=== PATIENT | male | born 1965 | race Caucasian/White ===

== ENCOUNTER 2017-06-29 12:51 | Emergency (ER) | payer MEDICAID ==
[~2017-06-29] VITALS: Ht 172.7 cm; Wt 79.0 kg
[~2017-06-29 12:51] MED LIST: AMOX-424 PO; ASPI-1158 PO; ECOTRIN; FLUC200T PO; INSU100C6 SQ; INSU100I7 SQ; LEVPEN SQ; LISI-186 PO; LOPE2CAP PO; MAGN400T26 PO; METO5TAB99 PO; MULT-348 PO; POTA10TA15 PO; TRAM50TA3 PO
[2017-06-29] MEDS ORDERED: ONDANSETRON HCL 4MG/2ML VIAL IV ONE ×2 (15:15→16:30)
[2017-06-29] MEDS ORDERED: KETOROLAC 30MG/ML VIAL IV ONE (16:45)
[2017-06-29] MEDS ORDERED: MAGNESIUM/ALUMINUM HYDROXIDE/SIMETHICONE 30ML UDC PO STA (17:08)
[2017-06-29] MEDS ORDERED: FAMOTIDINE 20MG/2ML VIAL IV STA (17:08)
[2017-06-29 17:43] LABS: BASOPHILS % 0.6 % (0.0-2.0); HEMATOCRIT. 37.1 % (42.0-52.0); HEMOGLOBIN. 12.2 g/dL (14.0-18.0); LYMPHOCYTES % 7.8 % (20.0-50.0); MEAN CORPUSCULAR HEMOGLOBIN 27.2 pg (28.0-32.0); MEAN CORPUSCULAR VOLUME 82.6 fL (80.0-94.0); MEAN PLATELET VOLUME 7.2 fl (7.4-10.4); MONOCYTES % 3.5 % (2.0-8.0); NEUTROPHILS % 88.1 % (40.0-76.0); PLATELET 365 x1000/uL (130-400); RED BLOOD CELL COUNT 4.49 mill/uL (4.7-6.1)
[2017-06-29 17:48] LABS: CHLORIDE 100 mEq/L (98-107)
[2017-06-29 17:57] LABS: CARBON DIOXIDE 28 mEq/L (21-32)
[2017-06-29] MEDS ORDERED: METOCLOPRAMIDE HCL 10MG/2ML VIAL IV ONE (21:30)
[2017-06-29] MEDS ORDERED: MORPHINE SULFATE 4 MG/ML CPJ (NOT FOR IM USE) IV STA (21:30)
[2017-06-29] MEDS ORDERED: MORPHINE SULFATE 4 MG/ML CPJ (NOT FOR IM USE) IV ONE (22:15)
[2017-06-29 23:21] VITALS: BP 82/76
== END 2017-06-29 23:25 | disposition home or self-care (01) ==
LOC: ER 12:51
DX: K80.20 Calculus of gallbladder without cholecystitis without obstruction (principal); E11.9 Type 2 diabetes mellitus without complications; Z79.4 Long term (current) use of insulin; Z79.82 Long term (current) use of aspirin
CPT/HCPCS: 36415; 76700; 80053; 82962; 83690; 85025; 96374; 96375; 96376; 99285; J1885; J2270; J2405; J2765; J3490; Z7610

== ENCOUNTER 2019-11-08 11:30 | Inpatient (IN) | payer MEDICAID ==
[~2019-11-08] VITALS: Ht 165.1 cm; Wt 68.3 kg
[~2019-11-08 11:30] MED LIST changes: -AMOX-424 PO; +CALC0.253 MT; +CALC667C MT; -ECOTRIN; +FERR325T6 PO; -FLUC200T PO; +HYDR-4134 MT; -INSU100C6 SQ; -LEVPEN SQ; -LISI-186 PO; -LOPE2CAP PO; -MAGN400T26 PO; -METO5TAB99 PO; -POTA10TA15 PO; +PRAV20TA57 MT; -TRAM50TA3 PO
[2019-11-08] MEDS ORDERED: HYDROCODONE/ACETAMINOPHEN 5/325MG TABLET PO ONE (12:15)
[2019-11-08 13:39] LABS: HEMATOCRIT. 24.1 % (42.0-52.0); HEMOGLOBIN. 7.4 g/dL (14.0-18.0); MEAN CORPUSCULAR HEMOGLOBIN 19.8 pg (28.0-32.0); MEAN CORPUSCULAR VOLUME 64.7 fL (80.0-94.0); MEAN PLATELET VOLUME 6.9 fl (7.4-10.4); PLATELET 761 x1000/uL (130-400); RED BLOOD CELL COUNT 3.72 mill/uL (4.7-6.1); RED CELL DISTRIBUTION WIDTH 22.2 % (11.6-14.6)
[2019-11-08 13:47] LABS: CHLORIDE 94 mEq/L (98-107)
[2019-11-08 13:57] LABS: D-DIMER 17.31 mg/L FEU (<0.50); INR 1.1
[2019-11-08] MEDS ORDERED: VANCOMYCIN 1 G PREMIX 200 ML IV ONE (14:00)
[2019-11-08] MEDS ORDERED: PIPERACILLIN/TAZ 3.375G PREMIX 50 ML IV ONE (14:00)
[2019-11-08 14:15] LABS: PLATELET ESTIMATE INCREASED
[2019-11-08] MEDS ORDERED: SODIUM CHLORIDE 0.9% 500 ML IV ONE (14:39)
[2019-11-08] MEDS ORDERED: CEFTRIAXONE 1 G PREMIX 50 ML IV SCH (18:00)
[2019-11-08] MEDS ORDERED: ACETAMINOPHEN 650MG SUPP PR PRN ×2 (18:15)
[2019-11-08] MEDS ORDERED: ACETAMINOPHEN 325MG TABLET PO PRN (18:15)
[2019-11-08] MEDS ORDERED: ACETAMINOPHEN 650MG/20.3ML UDC GT PRN ×2 (18:15)
[2019-11-08] MEDS ORDERED: ENOXAPARIN 40MG/0.4ML SYR SUBCUT SCH ×2 (18:15)
[2019-11-08] MEDS ORDERED: MAGNESIUM/ALUMINUM HYDROXIDE/SIMETHICONE 30ML UDC PO PRN (18:15)
[2019-11-08] MEDS: SODIUM CHLORIDE 0.9% INJ 3ML FLUSH IVF SCH (22:00)
[2019-11-09] MEDS: HYDROCODONE/ACETAMINOPHEN 5/325MG TABLET PO PRN ×2 (02:05→18:31)
[2019-11-09 04:11] LABS: HEMATOCRIT. 27.6 % (42.0-52.0); HEMOGLOBIN. 8.1 g/dL (14.0-18.0); MEAN CORPUSCULAR HEMOGLOBIN 19.3 pg (28.0-32.0); MEAN CORPUSCULAR VOLUME 65.5 fL (80.0-94.0); MEAN PLATELET VOLUME 6.8 fl (7.4-10.4); PLATELET 765 x1000/uL (130-400); RED BLOOD CELL COUNT 4.21 mill/uL (4.7-6.1); RED CELL DISTRIBUTION WIDTH 22.2 % (11.6-14.6)
[2019-11-09 04:25] LABS: CHLORIDE 94 mEq/L (98-107)
[2019-11-09 04:32] LABS: LDL CHOLESTEROL 51 mg/dL (5-100)
[2019-11-09 04:34] LABS: HDL CHOLESTEROL 17 mg/dL (40-59)
[2019-11-09] MEDS: SODIUM CHLORIDE 0.9% INJ 3ML FLUSH IVF SCH ×3 (06:00→20:58)
[2019-11-09 08:15] VITALS: BP 116/59
[2019-11-09 08:20] LABS: PLATELET ESTIMATE INCREASED
[2019-11-09 16:12] VITALS: BP 114/66
[2019-11-09] MEDS ORDERED: CEFTRIAXONE 1 G PREMIX 50 ML IV SCH (18:00)
[2019-11-09] MEDS: ENOXAPARIN 30MG/0.3ML SYR SUBCUT SCH (18:31)
[2019-11-09] MEDS ORDERED: DEXTROSE 50% WATER 50ML SYRINGE IV PRN (19:45)
[2019-11-09] MEDS ORDERED: NON FORMULARY PATIENT HOME MED XX SCH (19:45)
[2019-11-09 20:30] VITALS: BP 106/56
[2019-11-09] MEDS: BLOOD SUGAR DIAGNOSTIC STRIP TEST SCH (20:31)
[2019-11-09] MEDS: ATORVASTATIN CALCIUM 10MG TABLET PO SCH (20:53)
[2019-11-09] MEDS: MULTIVITAMINS,THER W-MINERALS TABLET PO SCH (20:54)
[2019-11-09] MEDS: CALCITRIOL 0.25MCG CAPSULE PO SCH (20:54)
[2019-11-09] MEDS: INSULIN LISPRO 100 UNITS/ML SUBCUT SCH (20:58)
[2019-11-09] MEDS: DIPHENHYDRAMINE 50MG/ML VIAL IV PRN (22:09)
[2019-11-10] VITALS: BP 116/65
[2019-11-10 04:30] VITALS: BP 115/66
[2019-11-10] MEDS: SODIUM CHLORIDE 0.9% INJ 3ML FLUSH IVF SCH ×3 (05:18→23:04)
[2019-11-10] MEDS: BLOOD SUGAR DIAGNOSTIC STRIP TEST SCH ×4 (06:29→20:29)
[2019-11-10] MEDS: HYDROCODONE/ACETAMINOPHEN 5/325MG TABLET PO PRN ×2 (06:44→20:29)
[2019-11-10 07:11] LABS: HEMATOCRIT. 23.3 % (42.0-52.0); HEMOGLOBIN. 7.2 g/dL (14.0-18.0); MEAN CORPUSCULAR HEMOGLOBIN 19.8 pg (28.0-32.0); MEAN CORPUSCULAR VOLUME 64.4 fL (80.0-94.0); MEAN PLATELET VOLUME 6.8 fl (7.4-10.4); PLATELET 754 x1000/uL (130-400); RED BLOOD CELL COUNT 3.61 mill/uL (4.7-6.1); RED CELL DISTRIBUTION WIDTH 22.1 % (11.6-14.6)
[2019-11-10 08:00] VITALS: BP 107/61
[2019-11-10] MEDS: CALCITRIOL 0.25MCG CAPSULE PO SCH (08:11)
[2019-11-10] MEDS: CALCIUM ACETATE 667MG CAPSULE PO SCH ×3 (08:11→17:27)
[2019-11-10] MEDS: FERROUS SULFATE 325MG TABLET PO SCH ×3 (08:12→17:27)
[2019-11-10] MEDS: MULTIVITAMINS,THER W-MINERALS TABLET PO SCH (08:12)
[2019-11-10] MEDS: ASPIRIN 81MG TABLET PO SCH (08:12)
[2019-11-10] MEDS: INSULIN LISPRO 100 UNITS/ML SUBCUT SCH ×4 (08:13→20:41)
[2019-11-10 11:46] LABS: PLATELET ESTIMATE INCREASED
[2019-11-10 12:00] VITALS: BP 107/55
[2019-11-10] MEDS ORDERED: METRONIDAZOLE 500 MG PREMIX 100 ML IV SCH (13:15)
[2019-11-10] MEDS: METRONIDAZOLE 500 MG PREMIX 100 ML IV SCH ×2 (14:00→23:01)
[2019-11-10] MEDS ORDERED: VANCOMYCIN 1 G PREMIX 200 ML IV SCH (14:00)
[2019-11-10 16:00] VITALS: BP 125/65
[2019-11-10] MEDS: ACETAMINOPHEN 325MG TABLET PO PRN (17:29)
[2019-11-10] MEDS: ENOXAPARIN 30MG/0.3ML SYR SUBCUT SCH (17:29)
[2019-11-10] MEDS: CEFTRIAXONE 1 G PREMIX 50 ML IV SCH (18:32)
[2019-11-10 20:00] VITALS: BP 108/59
[2019-11-10] MEDS: ATORVASTATIN CALCIUM 10MG TABLET PO SCH (20:29)
[2019-11-11] VITALS: BP 95/60
[2019-11-11] MEDS: DIPHENHYDRAMINE 50MG/ML VIAL IV PRN (00:38)
[2019-11-11 04:00] VITALS: BP 122/69
[2019-11-11] MEDS: SODIUM CHLORIDE 0.9% INJ 3ML FLUSH IVF SCH ×3 (05:47→22:00)
[2019-11-11 06:00] LABS: BASOPHILS % 0.3 % (0.0-2.0); HEMATOCRIT. 24.9 % (42.0-52.0); HEMOGLOBIN. 7.4 g/dL (14.0-18.0); LYMPHOCYTES % 11.2 % (20.0-50.0); MEAN CORPUSCULAR HEMOGLOBIN 19.7 pg (28.0-32.0); MEAN CORPUSCULAR VOLUME 65.9 fL (80.0-94.0); MEAN PLATELET VOLUME 6.8 fl (7.4-10.4); MONOCYTES % 2.9 % (2.0-8.0); NEUTROPHILS % 84.6 % (40.0-76.0); PLATELET 802 x1000/uL (130-400); RED BLOOD CELL COUNT 3.77 mill/uL (4.7-6.1); RED CELL DISTRIBUTION WIDTH 22.3 % (11.6-14.6)
[2019-11-11 06:29] LABS: PHOSPHORUS 3.8 mg/dL (2.5-4.9)
[2019-11-11] MEDS: BLOOD SUGAR DIAGNOSTIC STRIP TEST SCH ×4 (06:46→20:28)
[2019-11-11 08:00] VITALS: BP 110/62
[2019-11-11] MEDS: METRONIDAZOLE 500 MG PREMIX 100 ML IV SCH ×2 (09:26→20:17)
[2019-11-11] MEDS: CALCITRIOL 0.25MCG CAPSULE PO SCH (09:26)
[2019-11-11] MEDS: CALCIUM ACETATE 667MG CAPSULE PO SCH ×3 (09:26→17:32)
[2019-11-11] MEDS: ASPIRIN 81MG TABLET PO SCH (09:27)
[2019-11-11] MEDS: MULTIVITAMINS,THER W-MINERALS TABLET PO SCH (09:27)
[2019-11-11] MEDS: FERROUS SULFATE 325MG TABLET PO SCH ×3 (09:27→17:33)
[2019-11-11] MEDS: INSULIN LISPRO 100 UNITS/ML SUBCUT SCH ×4 (09:28→20:48)
[2019-11-11] MEDS: HYDROCODONE/ACETAMINOPHEN 5/325MG TABLET PO PRN ×2 (10:28→20:42)
[2019-11-11 12:00] VITALS: BP 116/63
[2019-11-11 16:00] VITALS: BP 134/65
[2019-11-11] MEDS: ENOXAPARIN 30MG/0.3ML SYR SUBCUT SCH (17:33)
[2019-11-11] MEDS: CEFTRIAXONE 1 G PREMIX 50 ML IV SCH (17:33)
[2019-11-11 20:00] VITALS: BP 141/71
[2019-11-11] MEDS: ATORVASTATIN CALCIUM 10MG TABLET PO SCH (20:17)
[2019-11-12] VITALS (14 sets, daily range): BP systolic 120–163; BP diastolic 60–80
[2019-11-12] MEDS: CEFAZOLIN 2,000 MG in DEXT 5% WATER 100 ML IV SCH ×2 (04:06→22:56)
[2019-11-12] MEDS: SODIUM CHLORIDE 0.9% INJ 3ML FLUSH IVF SCH (06:19)
[2019-11-12] MEDS: BLOOD SUGAR DIAGNOSTIC STRIP TEST SCH ×5 (06:20→21:00)
[2019-11-12 07:29] LABS: BASOPHILS % 0.4 % (0.0-2.0); HEMATOCRIT. 24.4 % (42.0-52.0); HEMOGLOBIN. 7.4 g/dL (14.0-18.0); LYMPHOCYTES % 12.6 % (20.0-50.0); MEAN CORPUSCULAR HEMOGLOBIN 19.8 pg (28.0-32.0); MEAN CORPUSCULAR VOLUME 64.8 fL (80.0-94.0); MEAN PLATELET VOLUME 6.8 fl (7.4-10.4); MONOCYTES % 2.8 % (2.0-8.0); NEUTROPHILS % 83.2 % (40.0-76.0); PLATELET 810 x1000/uL (130-400); RED BLOOD CELL COUNT 3.77 mill/uL (4.7-6.1); RED CELL DISTRIBUTION WIDTH 22.1 % (11.6-14.6)
[2019-11-12 07:47] LABS: PHOSPHORUS 3.7 mg/dL (2.5-4.9)
[2019-11-12] MEDS: FERROUS SULFATE 325MG TABLET PO SCH ×3 (08:33→17:40)
[2019-11-12] MEDS: MULTIVITAMINS,THER W-MINERALS TABLET PO SCH (08:33)
[2019-11-12] MEDS: CALCIUM ACETATE 667MG CAPSULE PO SCH ×3 (08:33→17:40)
[2019-11-12] MEDS: INSULIN LISPRO 100 UNITS/ML SUBCUT SCH ×4 (08:49→22:55)
[2019-11-12] MEDS: ASPIRIN 81MG TABLET PO SCH (08:51)
[2019-11-12] MEDS: CALCITRIOL 0.25MCG CAPSULE PO SCH (08:51)
[2019-11-12] MEDS: METRONIDAZOLE 500 MG PREMIX 100 ML IV SCH ×2 (08:52→22:56)
[2019-11-12] MEDS: HYDROCODONE/ACETAMINOPHEN 5/325MG TABLET PO PRN ×3 (09:04→23:35)
[2019-11-12] MEDS ORDERED: HEPARIN SODIUM 1,000 UNIT/1ML VIAL IV SCH (14:15)
[2019-11-12] MEDS: ENOXAPARIN 30MG/0.3ML SYR SUBCUT SCH (17:43)
[2019-11-12] MEDS: ATORVASTATIN CALCIUM 10MG TABLET PO SCH (22:55)
[2019-11-13] VITALS: BP 119/68
[2019-11-13] MEDS: DIPHENHYDRAMINE 50MG/ML VIAL IV PRN (02:14)
[2019-11-13 04:00] VITALS: BP 152/82
[2019-11-13] MEDS ORDERED: VANCOMYCIN HCL 1 GM/VIAL ONE ×2 (06:36→08:05)
[2019-11-13] MEDS ORDERED: BUPIVACAINE HCL/EPINEPHRINE/PF 0.5%/0.0005 10ML ONE (06:36)
[2019-11-13] MEDS ORDERED: BACITRACIN 50,000 UNITS/VIAL ONE ×2 (06:36→06:37)
[2019-11-13] MEDS ORDERED: BUPIVACAINE HCL/PF 0.5% (5MG/ML) 10ML ONE (06:36)
[2019-11-13 06:51] LABS: BASOPHILS % 0.5 % (0.0-2.0); EOSINOPHILS % 1.2 % (0.0-5.0); HEMATOCRIT. 29.1 % (42.0-52.0); HEMOGLOBIN. 9.3 g/dL (14.0-18.0); LYMPHOCYTES % 8.9 % (20.0-50.0); MEAN CORPUSCULAR HEMOGLOBIN 22.4 pg (28.0-32.0); MEAN CORPUSCULAR VOLUME 70.2 fL (80.0-94.0); MEAN PLATELET VOLUME 6.8 fl (7.4-10.4); MONOCYTES % 3.9 % (2.0-8.0); NEUTROPHILS % 85.5 % (40.0-76.0); PLATELET 758 x1000/uL (130-400); RED BLOOD CELL COUNT 4.15 mill/uL (4.7-6.1); RED CELL DISTRIBUTION WIDTH 26.1 % (11.6-14.6)
[2019-11-13 07:13] LABS: PHOSPHORUS 3.8 mg/dL (2.5-4.9)
[2019-11-13] MEDS ORDERED: MIDAZOLAM HCL 5 MG/5 ML VIAL ONE (07:34)
[2019-11-13] MEDS ORDERED: PROPOFOL 200MG/20ML VIAL IV ONE (07:35)
[2019-11-13] MEDS ORDERED: SUCCINYLCHOLINE CHLORIDE 200MG/10ML IV ONE (07:35)
[2019-11-13] MEDS: INSULIN LISPRO 100 UNITS/ML SUBCUT SCH ×4 (07:50→21:39)
[2019-11-13] MEDS: CALCIUM ACETATE 667MG CAPSULE PO SCH ×3 (07:50→18:40)
[2019-11-13] MEDS: BLOOD SUGAR DIAGNOSTIC STRIP TEST SCH ×4 (08:11→21:24)
[2019-11-13] MEDS ORDERED: SODIUM CHLORIDE 0.9% 1,000 ML IV ONE (08:24)
[2019-11-13] MEDS ORDERED: ONDANSETRON HCL 4MG/2ML INJ IV PRN (08:30)
[2019-11-13] MEDS ORDERED: MORPHINE SULFATE 2 MG/ML CPJ (NOT FOR IM USE) IV PRN (08:30)
[2019-11-13] MEDS ORDERED: HYDROMORPHONE HCL/PF 2MG/ML CPJ IV PRN (08:30)
[2019-11-13] MEDS: ASPIRIN 81MG TABLET PO SCH (09:00)
[2019-11-13 10:00] VITALS: BP 142/72
[2019-11-13] MEDS: METRONIDAZOLE 500 MG PREMIX 100 ML IV SCH ×2 (11:15→23:01)
[2019-11-13] MEDS: MULTIVITAMINS,THER W-MINERALS TABLET PO SCH (11:16)
[2019-11-13] MEDS: CLONIDINE 0.1MG TABLET PO PRN (11:16)
[2019-11-13] MEDS: FERROUS SULFATE 325MG TABLET PO SCH ×3 (11:16→18:40)
[2019-11-13] MEDS: CALCITRIOL 0.25MCG CAPSULE PO SCH (11:16)
[2019-11-13 12:00] VITALS: BP 148/80
[2019-11-13] MEDS: HYDROMORPHONE HCL/PF 2MG/ML CPJ IM PRN ×2 (12:13→21:19)
[2019-11-13 16:00] VITALS: BP 138/78
[2019-11-13] MEDS: HYDROCODONE/ACETAMINOPHEN 5/325MG TABLET PO PRN (17:59)
[2019-11-13] MEDS: ENOXAPARIN 30MG/0.3ML SYR SUBCUT SCH (18:01)
[2019-11-13 20:00] VITALS: BP 135/77
[2019-11-13] MEDS: SODIUM CHLORIDE 0.9% INJ 3ML FLUSH IVF SCH ×2 (21:23→21:28)
[2019-11-13] MEDS: ATORVASTATIN CALCIUM 10MG TABLET PO SCH (21:24)
[2019-11-13] MEDS: CEFAZOLIN 2,000 MG in DEXT 5% WATER 100 ML IV SCH (21:24)
[2019-11-14] VITALS: BP 110/96
[2019-11-14] MEDS: DIPHENHYDRAMINE 50MG/ML VIAL IV PRN (01:37)
[2019-11-14 04:00] VITALS: BP 151/73
[2019-11-14 05:48] LABS: BASOPHILS % 0.5 % (0.0-2.0); EOSINOPHILS % 1.8 % (0.0-5.0); HEMATOCRIT. 26.9 % (42.0-52.0); HEMOGLOBIN. 8.5 g/dL (14.0-18.0); LYMPHOCYTES % 8.7 % (20.0-50.0); MEAN CORPUSCULAR HEMOGLOBIN 22.1 pg (28.0-32.0); MEAN CORPUSCULAR VOLUME 69.4 fL (80.0-94.0); MEAN PLATELET VOLUME 6.7 fl (7.4-10.4); PLATELET 777 x1000/uL (130-400); RED BLOOD CELL COUNT 3.87 mill/uL (4.7-6.1); RED CELL DISTRIBUTION WIDTH 26.5 % (11.6-14.6)
[2019-11-14 06:14] LABS: PHOSPHORUS 4.2 mg/dL (2.5-4.9)
[2019-11-14] MEDS: HYDROMORPHONE HCL/PF 2MG/ML CPJ IM PRN ×2 (06:14→15:26)
[2019-11-14] MEDS: BLOOD SUGAR DIAGNOSTIC STRIP TEST SCH ×4 (06:56→21:10)
[2019-11-14] MEDS: SODIUM CHLORIDE 0.9% INJ 3ML FLUSH IVF SCH ×3 (06:56→21:10)
[2019-11-14 07:55] VITALS: BP 132/67
[2019-11-14] MEDS: ASPIRIN 81MG TABLET PO SCH (10:03)
[2019-11-14] MEDS: CALCITRIOL 0.25MCG CAPSULE PO SCH (10:03)
[2019-11-14] MEDS: MULTIVITAMINS,THER W-MINERALS TABLET PO SCH (10:03)
[2019-11-14] MEDS: CALCIUM ACETATE 667MG CAPSULE PO SCH ×3 (10:03→17:32)
[2019-11-14] MEDS: FERROUS SULFATE 325MG TABLET PO SCH ×3 (10:03→17:33)
[2019-11-14] MEDS: INSULIN LISPRO 100 UNITS/ML SUBCUT SCH ×4 (10:14→22:17)
[2019-11-14] MEDS: METRONIDAZOLE 500 MG PREMIX 100 ML IV SCH ×2 (10:14→20:17)
[2019-11-14 12:00] VITALS: BP 136/79
[2019-11-14] MEDS ORDERED: HEPARIN SODIUM 1,000 UNIT/1ML VIAL IV SCH (13:15)
[2019-11-14 16:00] VITALS: BP 156/76
[2019-11-14] MEDS: ENOXAPARIN 30MG/0.3ML SYR SUBCUT SCH (17:43)
[2019-11-14] MEDS: HYDROCODONE/ACETAMINOPHEN 5/325MG TABLET PO PRN (18:19)
[2019-11-14 20:00] VITALS: BP 148/72
[2019-11-14] MEDS: CEFAZOLIN 2,000 MG in DEXT 5% WATER 100 ML IV SCH (20:18)
[2019-11-14] MEDS: ATORVASTATIN CALCIUM 10MG TABLET PO SCH (20:18)
[2019-11-15] VITALS: BP 142/68
[2019-11-15] MEDS: HYDROCODONE/ACETAMINOPHEN 5/325MG TABLET PO PRN ×4 (00:45→22:11)
[2019-11-15] MEDS: DIPHENHYDRAMINE 50MG/ML VIAL IV PRN (01:38)
[2019-11-15 04:00] VITALS: BP 133/71
[2019-11-15] MEDS: BLOOD SUGAR DIAGNOSTIC STRIP TEST SCH ×4 (04:24→20:25)
[2019-11-15] MEDS: SODIUM CHLORIDE 0.9% INJ 3ML FLUSH IVF SCH ×3 (04:24→22:12)
[2019-11-15 06:22] LABS: BASOPHILS % 0.6 % (0.0-2.0); HEMATOCRIT. 27.9 % (42.0-52.0); HEMOGLOBIN. 8.7 g/dL (14.0-18.0); LYMPHOCYTES % 12.8 % (20.0-50.0); MEAN CORPUSCULAR HEMOGLOBIN 21.9 pg (28.0-32.0); MEAN CORPUSCULAR VOLUME 70.5 fL (80.0-94.0); MEAN PLATELET VOLUME 6.6 fl (7.4-10.4); MONOCYTES % 5.4 % (2.0-8.0); NEUTROPHILS % 79.2 % (40.0-76.0); PLATELET 750 x1000/uL (130-400); RED BLOOD CELL COUNT 3.96 mill/uL (4.7-6.1); RED CELL DISTRIBUTION WIDTH 27.3 % (11.6-14.6)
[2019-11-15 06:38] LABS: PHOSPHORUS 3.4 mg/dL (2.5-4.9)
[2019-11-15 08:00] VITALS: BP 124/59
[2019-11-15] MEDS: ASPIRIN 81MG TABLET PO SCH (08:13)
[2019-11-15] MEDS: MULTIVITAMINS,THER W-MINERALS TABLET PO SCH (08:13)
[2019-11-15] MEDS: CALCIUM ACETATE 667MG CAPSULE PO SCH ×3 (08:13→17:47)
[2019-11-15] MEDS: CALCITRIOL 0.25MCG CAPSULE PO SCH (08:13)
[2019-11-15] MEDS: FERROUS SULFATE 325MG TABLET PO SCH ×3 (08:13→17:47)
[2019-11-15] MEDS: INSULIN LISPRO 100 UNITS/ML SUBCUT SCH ×4 (08:14→20:25)
[2019-11-15] MEDS: METRONIDAZOLE 500 MG PREMIX 100 ML IV SCH ×2 (08:30→20:12)
[2019-11-15 12:00] VITALS: BP 156/80
[2019-11-15] MEDS: HYDROMORPHONE HCL/PF 2MG/ML CPJ IM PRN (12:12)
[2019-11-15 16:00] VITALS: BP 133/76
[2019-11-15] MEDS: ENOXAPARIN 30MG/0.3ML SYR SUBCUT SCH (18:10)
[2019-11-15 20:00] VITALS: BP 137/63
[2019-11-15] MEDS: ATORVASTATIN CALCIUM 10MG TABLET PO SCH (20:11)
[2019-11-15] MEDS: CEFAZOLIN 2,000 MG in DEXT 5% WATER 100 ML IV SCH (20:12)
[2019-11-16] VITALS: BP 143/83
[2019-11-16] MEDS: DIPHENHYDRAMINE 50MG/ML VIAL IV PRN ×2 (00:10→23:19)
[2019-11-16 04:00] VITALS: BP 160/79
[2019-11-16] MEDS: SODIUM CHLORIDE 0.9% INJ 3ML FLUSH IVF SCH ×3 (05:13→21:19)
[2019-11-16] MEDS: HYDROCODONE/ACETAMINOPHEN 5/325MG TABLET PO PRN (05:15)
[2019-11-16] MEDS: BLOOD SUGAR DIAGNOSTIC STRIP TEST SCH ×4 (06:50→21:19)
[2019-11-16 08:00] VITALS: BP 160/79
[2019-11-16] MEDS: INSULIN LISPRO 100 UNITS/ML SUBCUT SCH ×4 (08:15→23:20)
[2019-11-16] MEDS: CALCITRIOL 0.25MCG CAPSULE PO SCH (08:16)
[2019-11-16] MEDS: FERROUS SULFATE 325MG TABLET PO SCH ×3 (08:16→16:47)
[2019-11-16] MEDS: CALCIUM ACETATE 667MG CAPSULE PO SCH ×3 (08:16→16:47)
[2019-11-16] MEDS: MULTIVITAMINS,THER W-MINERALS TABLET PO SCH (08:16)
[2019-11-16] MEDS: ASPIRIN 81MG TABLET PO SCH (08:17)
[2019-11-16] MEDS: HYDROMORPHONE HCL/PF 2MG/ML CPJ IM PRN (09:06)
[2019-11-16 12:00] VITALS: BP 145/75
[2019-11-16 16:00] VITALS: BP 151/85
[2019-11-16] MEDS: ENOXAPARIN 30MG/0.3ML SYR SUBCUT SCH (17:23)
[2019-11-16 20:00] VITALS: BP 146/81
[2019-11-16] MEDS: ATORVASTATIN CALCIUM 10MG TABLET PO SCH (21:19)
[2019-11-16] MEDS: CEFAZOLIN 2,000 MG in DEXT 5% WATER 100 ML IV SCH (21:19)
[2019-11-17] VITALS: BP 152/76
[2019-11-17] MEDS: SODIUM CHLORIDE 0.9% INJ 3ML FLUSH IVF SCH ×3 (03:32→21:04)
[2019-11-17] MEDS: HYDROCODONE/ACETAMINOPHEN 5/325MG TABLET PO PRN ×2 (03:32→11:51)
[2019-11-17] MEDS: HYDROMORPHONE HCL/PF 2MG/ML CPJ IM PRN (03:48)
[2019-11-17 04:00] VITALS: BP 117/78
[2019-11-17 06:32] LABS: BASOPHILS % 1.2 % (0.0-2.0); EOSINOPHILS % 4.1 % (0.0-5.0); HEMATOCRIT. 26.3 % (42.0-52.0); HEMOGLOBIN. 8.2 g/dL (14.0-18.0); LYMPHOCYTES % 11.8 % (20.0-50.0); MEAN CORPUSCULAR HEMOGLOBIN 21.6 pg (28.0-32.0); MEAN CORPUSCULAR VOLUME 69.3 fL (80.0-94.0); MEAN PLATELET VOLUME 6.6 fl (7.4-10.4); MONOCYTES % 5.2 % (2.0-8.0); NEUTROPHILS % 77.7 % (40.0-76.0); PLATELET 764 x1000/uL (130-400)
[2019-11-17] MEDS: BLOOD SUGAR DIAGNOSTIC STRIP TEST SCH ×4 (06:37→20:48)
[2019-11-17 07:30] LABS: CHLORIDE 101 mEq/L (98-107)
[2019-11-17 08:07] VITALS: BP 138/72
[2019-11-17] MEDS: CALCIUM ACETATE 667MG CAPSULE PO SCH ×3 (09:21→17:54)
[2019-11-17] MEDS: ASPIRIN 81MG TABLET PO SCH (09:22)
[2019-11-17] MEDS: FERROUS SULFATE 325MG TABLET PO SCH ×3 (09:22→17:54)
[2019-11-17] MEDS: MULTIVITAMINS,THER W-MINERALS TABLET PO SCH (09:22)
[2019-11-17] MEDS: CALCITRIOL 0.25MCG CAPSULE PO SCH (09:22)
[2019-11-17] MEDS: INSULIN LISPRO 100 UNITS/ML SUBCUT SCH ×4 (09:27→20:49)
[2019-11-17 11:33] VITALS: BP 142/74
[2019-11-17 16:21] VITALS: BP 170/82
[2019-11-17] MEDS: CLONIDINE 0.1MG TABLET PO PRN (16:49)
[2019-11-17] MEDS: ACETAMINOPHEN 325MG TABLET PO PRN (16:50)
[2019-11-17] MEDS ORDERED: [UNRECOGNIZED DRUG - CODE] IV (17:04)
[2019-11-17] MEDS ORDERED: CEFAZOLIN 1000MG PREMIX 50 ML IV SCH (17:30)
[2019-11-17] MEDS: ENOXAPARIN 30MG/0.3ML SYR SUBCUT SCH (17:55)
[2019-11-17] MEDS: CEFAZOLIN 2,000 MG in DEXT 5% WATER 100 ML IV SCH (17:55)
[2019-11-17] MEDS ORDERED: CEFAZOLIN 2000MG in DEXTROSE 5% WATER 100ML IV SCH (20:00)
[2019-11-17] MEDS ORDERED: HEPARIN SODIUM 1,000 UNIT/1ML VIAL IV ONE (20:15)
[2019-11-17 20:22] VITALS: BP 138/72
[2019-11-17] MEDS: ATORVASTATIN CALCIUM 10MG TABLET PO SCH (21:03)
[2019-11-18 00:49] VITALS: BP 127/58
[2019-11-18] MEDS: HYDROMORPHONE HCL/PF 2MG/ML CPJ IM PRN (01:01)
[2019-11-18] MEDS: DIPHENHYDRAMINE 50MG/ML VIAL IV PRN ×2 (02:02→21:50)
[2019-11-18 04:00] VITALS: BP 135/77
[2019-11-18 06:07] LABS: BASOPHILS % 0.7 % (0.0-2.0); EOSINOPHILS % 2.6 % (0.0-5.0); HEMOGLOBIN. 8.7 g/dL (14.0-18.0); LYMPHOCYTES % 14.1 % (20.0-50.0); MEAN CORPUSCULAR HEMOGLOBIN 21.8 pg (28.0-32.0); MEAN CORPUSCULAR VOLUME 69.9 fL (80.0-94.0); MEAN PLATELET VOLUME 6.5 fl (7.4-10.4); MONOCYTES % 4.5 % (2.0-8.0); NEUTROPHILS % 78.1 % (40.0-76.0); PLATELET 796 x1000/uL (130-400); RED CELL DISTRIBUTION WIDTH 27.1 % (11.6-14.6)
[2019-11-18] MEDS: SODIUM CHLORIDE 0.9% INJ 3ML FLUSH IVF SCH ×3 (06:31→21:55)
[2019-11-18] MEDS: BLOOD SUGAR DIAGNOSTIC STRIP TEST SCH ×4 (06:31→21:00)
[2019-11-18 07:10] LABS: PHOSPHORUS 3.3 mg/dL (2.5-4.9)
[2019-11-18] MEDS: HYDROCODONE/ACETAMINOPHEN 5/325MG TABLET PO PRN ×2 (07:17→17:54)
[2019-11-18] MEDS: FERROUS SULFATE 325MG TABLET PO SCH ×3 (07:50→20:02)
[2019-11-18] MEDS: INSULIN LISPRO 100 UNITS/ML SUBCUT SCH ×4 (07:50→21:55)
[2019-11-18] MEDS: CALCIUM ACETATE 667MG CAPSULE PO SCH ×3 (07:50→17:36)
[2019-11-18 08:00] VITALS: BP 148/68
[2019-11-18] MEDS: MULTIVITAMINS,THER W-MINERALS TABLET PO SCH (09:00)
[2019-11-18] MEDS: ASPIRIN 81MG TABLET PO SCH (09:00)
[2019-11-18] MEDS: CALCITRIOL 0.25MCG CAPSULE PO SCH (09:00)
[2019-11-18 12:00] VITALS: BP 150/71
[2019-11-18] MEDS ORDERED: NORMAL SALINE 0.9% 10 ML SYR ONE ×2 (12:43→13:29)
[2019-11-18] MEDS ORDERED: BUPIVACAINE HCL/PF 0.5% (5MG/ML) 10ML ONE (12:43)
[2019-11-18] MEDS ORDERED: LIDOCAINE HCL 1% 20ML VIAL (Pyxis) INJ ONE (12:43)
[2019-11-18] MEDS ORDERED: BACITRACIN 50,000 UNITS/VIAL ONE (12:44)
[2019-11-18] MEDS ORDERED: PROPOFOL 200MG/20ML VIAL IV ONE (13:29)
[2019-11-18] MEDS ORDERED: MIDAZOLAM HCL 2 MG/2 ML VIAL ONE (13:29)
[2019-11-18] MEDS ORDERED: FENTANYL CITRATE/PF 50MCG/ML 2ML VIAL ONE (13:29)
[2019-11-18] MEDS ORDERED: VANCOMYCIN HCL 1 GM/VIAL ONE (13:29)
[2019-11-18] MEDS ORDERED: VANCOMYCIN HCL 500 MG/VIAL ONE (13:37)
[2019-11-18] MEDS: ENOXAPARIN 30MG/0.3ML SYR SUBCUT SCH (17:54)
[2019-11-18 20:00] VITALS: BP 124/73
[2019-11-18] MEDS: ATORVASTATIN CALCIUM 10MG TABLET PO SCH (21:30)
[2019-11-18] MEDS: CEFAZOLIN 2,000 MG in DEXT 5% WATER 100 ML IV SCH (21:30)
[2019-11-18] MEDS: HYDROMORPHONE HCL/PF 2MG/ML CPJ IV PRN (21:31)
[2019-11-19] VITALS: BP 125/78
[2019-11-19 04:00] VITALS: BP 133/73
[2019-11-19] MEDS: HYDROMORPHONE HCL/PF 2MG/ML CPJ IV PRN ×4 (04:26→17:51)
[2019-11-19] MEDS: DIPHENHYDRAMINE 50MG/ML VIAL IV PRN ×3 (05:29→19:00)
[2019-11-19] MEDS: SODIUM CHLORIDE 0.9% INJ 3ML FLUSH IVF SCH ×3 (05:29→22:10)
[2019-11-19] MEDS: BLOOD SUGAR DIAGNOSTIC STRIP TEST SCH ×4 (06:34→21:46)
[2019-11-19 07:08] LABS: MEAN CORPUSCULAR HEMOGLOBIN 21.6 pg (28.0-32.0); MEAN CORPUSCULAR VOLUME 70.6 fL (80.0-94.0); MEAN PLATELET VOLUME 6.7 fl (7.4-10.4); PLATELET 757 x1000/uL (130-400); RED BLOOD CELL COUNT 3.69 mill/uL (4.7-6.1); RED CELL DISTRIBUTION WIDTH 27.1 % (11.6-14.6)
[2019-11-19] MEDS: CALCIUM ACETATE 667MG CAPSULE PO SCH ×3 (07:50→17:52)
[2019-11-19] MEDS: FERROUS SULFATE 325MG TABLET PO SCH ×3 (07:50→17:52)
[2019-11-19 07:55] LABS: PHOSPHORUS 3.2 mg/dL (2.5-4.9)
[2019-11-19 08:00] VITALS: BP 145/70
[2019-11-19] MEDS: INSULIN LISPRO 100 UNITS/ML SUBCUT SCH ×4 (08:16→22:08)
[2019-11-19] MEDS: ASPIRIN 81MG TABLET PO SCH (09:15)
[2019-11-19] MEDS: CALCITRIOL 0.25MCG CAPSULE PO SCH (09:16)
[2019-11-19] MEDS: MULTIVITAMINS,THER W-MINERALS TABLET PO SCH (09:16)
[2019-11-19 13:47] LABS: ATYPICAL LYMPHOCYTES 1; PLATELET ESTIMATE MARKEDLY DECREASED
[2019-11-19 16:34] VITALS: BP 162/59
[2019-11-19] MEDS: ENOXAPARIN 30MG/0.3ML SYR SUBCUT SCH (18:08)
[2019-11-19 20:00] VITALS: BP 136/69
[2019-11-19] MEDS: CEFAZOLIN 2,000 MG in DEXT 5% WATER 100 ML IV SCH (20:46)
[2019-11-19] MEDS: ATORVASTATIN CALCIUM 10MG TABLET PO SCH (20:55)
[2019-11-20] VITALS (7 sets, daily range): BP systolic 110–149; BP diastolic 62–75
[2019-11-20] MEDS: ACETAMINOPHEN 325MG TABLET PO PRN (00:31)
[2019-11-20] MEDS: HYDROMORPHONE HCL/PF 2MG/ML CPJ IV PRN ×3 (00:34→17:19)
[2019-11-20] MEDS: DIPHENHYDRAMINE 50MG/ML VIAL IV PRN ×2 (00:47→11:12)
[2019-11-20] MEDS: BLOOD SUGAR DIAGNOSTIC STRIP TEST SCH ×3 (06:00→17:20)
[2019-11-20] MEDS: SODIUM CHLORIDE 0.9% INJ 3ML FLUSH IVF SCH ×2 (06:16→13:09)
[2019-11-20 07:04] LABS: HEMOGLOBIN. 7.8 g/dL (14.0-18.0); MEAN CORPUSCULAR HEMOGLOBIN 22.7 pg (28.0-32.0); MEAN CORPUSCULAR VOLUME 70.1 fL (80.0-94.0); MEAN PLATELET VOLUME 6.5 fl (7.4-10.4); PLATELET 750 x1000/uL (130-400); RED BLOOD CELL COUNT 3.43 mill/uL (4.7-6.1); RED CELL DISTRIBUTION WIDTH 27.2 % (11.6-14.6)
[2019-11-20] MEDS: CALCIUM ACETATE 667MG CAPSULE PO SCH ×3 (08:40→17:50)
[2019-11-20] MEDS: FERROUS SULFATE 325MG TABLET PO SCH ×3 (08:40→17:50)
[2019-11-20] MEDS: INSULIN LISPRO 100 UNITS/ML SUBCUT SCH ×3 (08:41→17:50)
[2019-11-20] MEDS: MULTIVITAMINS,THER W-MINERALS TABLET PO SCH (08:44)
[2019-11-20] MEDS: CALCITRIOL 0.25MCG CAPSULE PO SCH (08:44)
[2019-11-20] MEDS: ASPIRIN 81MG TABLET PO SCH (08:44)
[2019-11-20 12:59] LABS: PLATELET ESTIMATE INCREASED
[2019-11-20] MEDS: ENOXAPARIN 30MG/0.3ML SYR SUBCUT SCH (18:00)
== END 2019-11-20 19:04 | disposition home health service (06) | DRG 710 ==
LOC: ER 11:48 → 6WST 15:12 → EDBEDREQ 15:21 → ENRESERV 11-09 07:45
PROVIDERS: ADMIT Family Medicine; ATTEND Family Medicine
PROC: 30233N1 Transfusion of Nonautologous Red Blood Cells into Peripheral Vein, Percutaneous Approach (ICD-10-PCS; 2019-11-12)
PROC: 0J9N0ZZ Drainage of Right Lower Leg Subcutaneous Tissue and Fascia, Open Approach (ICD-10-PCS; principal; 2019-11-13)
PROC: 0Y9H0ZZ Drainage of Right Lower Leg, Open Approach (ICD-10-PCS; 2019-11-13)
PROC: 0Y9M0ZZ Drainage of Right Foot, Open Approach (ICD-10-PCS; 2019-11-18)
DX: A41.01 Sepsis due to Methicillin susceptible Staphylococcus aureus (principal); E43 Unspecified severe protein-calorie malnutrition; E11.22 Type 2 diabetes mellitus with diabetic chronic kidney disease; E87.2 Acidosis; M60.003 Infective myositis, unspecified right leg; I12.0 Hypertensive chronic kidney disease with stage 5 chronic kidney disease or end stage renal disease; E87.1 Hypo-osmolality and hyponatremia; C64.9 Malignant neoplasm of unspecified kidney, except renal pelvis; L02.415 Cutaneous abscess of right lower limb; I31.3 Pericardial effusion (noninflammatory); L03.115 Cellulitis of right lower limb; D63.1 Anemia in chronic kidney disease; D50.9 Iron deficiency anemia, unspecified; I25.10 Atherosclerotic heart disease of native coronary artery without angina pectoris; L02.611 Cutaneous abscess of right foot; J44.9 Chronic obstructive pulmonary disease, unspecified; I34.0 Nonrheumatic mitral (valve) insufficiency; I73.9 Peripheral vascular disease, unspecified; R74.8 Abnormal levels of other serum enzymes; N18.6 End stage renal disease; N25.81 Secondary hyperparathyroidism of renal origin; Z72.0 Tobacco use; Z82.49 Family history of ischemic heart disease and other diseases of the circulatory system; Z83.3 Family history of diabetes mellitus; Z89.512 Acquired absence of left leg below knee; Z99.2 Dependence on renal dialysis; Z86.19 Personal history of other infectious and parasitic diseases; Z89.431 Acquired absence of right foot; Z68.25 Body mass index [BMI] 25.0-25.9, adult; Z88.8 Allergy status to other drugs, medicaments and biological substances; Z79.899 Other long term (current) drug therapy; Z79.82 Long term (current) use of aspirin
CPT/HCPCS: 36415; 71045; 73700; 73718; 73721; 80048; 80053; 80061; 80202; 82550; 82962; 83036; 83605; 83735; 83880; 84100; 84145; 84484; 85025; 85379; 85651; 86140; 86850; 86900; 86920; 87070; 87075; 93005; 93306; 93922; 93971; 99291; J0171; J0330; J0690; J0696; J1170; J1200; J1644; J1650; J1815; J2250; J2270; J2543; J2704; J3010; J3370; J3490; J7060; P9016

== ENCOUNTER 2019-11-24 23:34 | Inpatient (IN) | payer MEDICAID ==
[~2019-11-24] VITALS: Ht 162.6 cm; Wt 73.5 kg
[~2019-11-24 23:34] MED LIST changes: +[UNRECOGNIZED DRUG - CODE] IV
[2019-11-25] VITALS (10 sets, daily range): BP systolic 112–166; BP diastolic 59–90
[2019-11-25 00:42] LABS: CHLORIDE 93 mEq/L (98-107)
[2019-11-25 00:47] LABS: BASOPHILS % 0.5 % (0.0-2.0); EOSINOPHILS % 1.8 % (0.0-5.0); LYMPHOCYTES % 12.9 % (20.0-50.0); MEAN CORPUSCULAR HEMOGLOBIN 22.1 pg (28.0-32.0); MEAN CORPUSCULAR VOLUME 70.1 fL (80.0-94.0); MEAN PLATELET VOLUME 6.7 fl (7.4-10.4); NEUTROPHILS % 80.8 % (40.0-76.0); PLATELET 612 x1000/uL (130-400); RED BLOOD CELL COUNT 2.68 mill/uL (4.7-6.1)
[2019-11-25 00:50] LABS: HEMATOCRIT. 18.8 % (42.0-52.0); HEMOGLOBIN. 5.9 g/dL (14.0-18.0)
[2019-11-25] MEDS ORDERED: DIPHENHYDRAMINE 25MG CAPSULE PO SCH (01:15)
[2019-11-25] MEDS ORDERED: MORPHINE SULFATE 10 MG/ML CPJ IM SCH (01:15)
[2019-11-25] MEDS ORDERED: ONDANSETRON HCL 4MG/2ML INJ IV SCH (01:15)
[2019-11-25] MEDS ORDERED: MORPHINE SULFATE 4 MG/ML CPJ (NOT FOR IM USE) IV ONE (01:45)
[2019-11-25] MEDS ORDERED: DIPHENHYDRAMINE 50MG/ML VIAL IV ONE (01:45)
[2019-11-25] MEDS ORDERED: SODIUM POLYSTYRENE SULFONATE 15 G/60 ML BOT PO SCH (03:00)
[2019-11-25] MEDS ORDERED: PANTOPRAZOLE SODIUM 40 MG/VIAL IV SCH (03:15)
[2019-11-25] MEDS ORDERED: METOCLOPRAMIDE HCL 10MG/2ML VIAL IV SCH (03:15)
[2019-11-25] MEDS ORDERED: SODIUM POLYSTYRENE SULFONATE 15 G/60 ML BOT PR ONE (05:00)
[2019-11-25] MEDS ORDERED: ACETAMINOPHEN 325MG TABLET PO PRN ×4 (06:30→15:45)
[2019-11-25] MEDS ORDERED: IPRATROPIUM/ALBUTEROL 0.5-3(2.5)MG/3ML NEB ORI PRN ×2 (06:30→15:45)
[2019-11-25] MEDS ORDERED: NITROGLYCERIN 0.4MG TABLET SL SL PRN ×2 (06:30→15:45)
[2019-11-25] MEDS ORDERED: GUAIFENESIN 200MG/10ML SUGAR FREE UDC PO PRN ×2 (06:30→15:45)
[2019-11-25] MEDS ORDERED: TRAMADOL 50MG TABLET PO PRN ×2 (06:30→15:45)
[2019-11-25] MEDS ORDERED: MAGNESIUM/ALUMINUM HYDROXIDE/SIMETHICONE 30ML UDC PO PRN ×2 (06:30→15:45)
[2019-11-25] MEDS ORDERED: DIPHENHYDRAMINE 50MG/ML VIAL IV PRN (06:30)
[2019-11-25] MEDS ORDERED: MORPHINE SULFATE 2 MG/ML CPJ (NOT FOR IM USE) IV PRN (06:30)
[2019-11-25] MEDS ORDERED: ONDANSETRON HCL 4MG/2ML INJ IV PRN ×2 (06:30→15:45)
[2019-11-25] MEDS ORDERED: DEXTROSE 50% WATER 50ML SYRINGE IV PRN ×2 (06:30→15:45)
[2019-11-25] MEDS ORDERED: ZOLPIDEM TARTRATE 5MG TABLET PO PRN ×2 (06:30→15:45)
[2019-11-25] MEDS ORDERED: DOCUSATE SODIUM 100MG CAPSULE PO PRN ×2 (06:30→15:45)
[2019-11-25] MEDS ORDERED: PANTOPRAZOLE 80 MG in SODIUM CHLORIDE 0.9% 100 ML IV SCH (08:15)
[2019-11-25] MEDS: PANTOPRAZOLE 80 MG in SODIUM CHLORIDE 0.9% 100 ML IV SCH ×2 (08:30→21:00)
[2019-11-25] MEDS: INSULIN LISPRO 100 UNITS/ML SUBCUT SCH ×2 (10:00→21:00)
[2019-11-25] MEDS: BLOOD SUGAR DIAGNOSTIC STRIP TEST SCH ×3 (10:00→21:00)
[2019-11-25] MEDS ORDERED: METOCLOPRAMIDE HCL 5MG TABLET PO NR (10:30)
[2019-11-25] MEDS ORDERED: SEVELAMER CARBONATE 800 MG TABLET PO NR (10:30)
[2019-11-25] MEDS ORDERED: SEVELAMER CARBONATE 800 MG TABLET PO SCH (13:00)
[2019-11-25] MEDS ORDERED: DESMOPRESSIN ACETATE 4MCG/ML AMP IV ONE (14:00)
[2019-11-25] MEDS ORDERED: CEFAZOLIN 1000MG PREMIX 50 ML IV NR (15:30)
[2019-11-25 15:52] LABS: HEMOGLOBIN 6.2 g/dL (14.0-18.0)
[2019-11-25 15:53] LABS: HEMATOCRIT 19.2 % (42.0-52.0)
[2019-11-25] MEDS: METOCLOPRAMIDE HCL 5MG TABLET PO SCH (17:50)
[2019-11-25] MEDS ORDERED: DESMOPRESSIN ACETATE 20 MCG in SODIUM CHLORIDE 0.9% 50 ML IV SCH (20:00)
[2019-11-25] MEDS ORDERED: VANCOMYCIN 1,000 MG in DEXT 5% WATER 250 ML IV SCH (20:00)
[2019-11-25] MEDS ORDERED: DESMOPRESSIN ACETATE 4MCG/ML AMP IV NR (20:00)
[2019-11-25] MEDS: MORPHINE SULFATE 2 MG/ML CPJ (NOT FOR IM USE) IV PRN (20:14)
[2019-11-25] MEDS ORDERED: CEFAZOLIN 1000MG PREMIX 50 ML IV SCH (22:00)
[2019-11-26] VITALS: BP 162/84
[2019-11-26] MEDS: DIPHENHYDRAMINE 50MG/ML VIAL IV PRN ×3 (01:52→23:48)
[2019-11-26] MEDS: CEFAZOLIN 1000MG PREMIX 50 ML IV SCH ×2 (01:54→04:53)
[2019-11-26] MEDS: PANTOPRAZOLE 80 MG in SODIUM CHLORIDE 0.9% 100 ML IV SCH (02:30)
[2019-11-26 04:00] VITALS: BP 124/51
[2019-11-26] MEDS: MORPHINE SULFATE 2 MG/ML CPJ (NOT FOR IM USE) IV PRN ×4 (04:53→22:41)
[2019-11-26] MEDS: METOCLOPRAMIDE HCL 5MG TABLET PO SCH ×3 (04:56→18:39)
[2019-11-26] MEDS: INSULIN LISPRO 100 UNITS/ML SUBCUT SCH ×4 (05:55→21:00)
[2019-11-26] MEDS: BLOOD SUGAR DIAGNOSTIC STRIP TEST SCH ×4 (05:55→21:00)
[2019-11-26] MEDS ORDERED: PANTOPRAZOLE 80 MG in SODIUM CHLORIDE 0.9% 100 ML IV SCH (06:00)
[2019-11-26] MEDS: SEVELAMER CARBONATE 800 MG TABLET PO SCH ×3 (07:50→18:40)
[2019-11-26 08:00] VITALS: BP 143/76
[2019-11-26 09:22] LABS: BASOPHILS % 0.7 % (0.0-2.0); EOSINOPHILS % 0.7 % (0.0-5.0); HEMATOCRIT. 26.3 % (42.0-52.0); HEMOGLOBIN. 8.9 g/dL (14.0-18.0); LYMPHOCYTES % 11.1 % (20.0-50.0); MEAN CORPUSCULAR HEMOGLOBIN 25.8 pg (28.0-32.0); MEAN CORPUSCULAR VOLUME 75.9 fL (80.0-94.0); MEAN PLATELET VOLUME 7.3 fl (7.4-10.4); NEUTROPHILS % 83.5 % (40.0-76.0); PLATELET 807 x1000/uL (130-400); RED BLOOD CELL COUNT 3.47 mill/uL (4.7-6.1); RED CELL DISTRIBUTION WIDTH 26.7 % (11.6-14.6)
[2019-11-26 09:37] LABS: PARTIAL THROMBOPLASTIN TIME 25.2 sec (23.4-31.0); PROTHROMBIN TIME 11.3 sec (9.6-11.0)
[2019-11-26 11:42] LABS: PHOSPHORUS 4.9 mg/dL (2.5-4.9)
[2019-11-26] MEDS ORDERED: MIDAZOLAM HCL 5 MG/5 ML VIAL ONE (11:45)
[2019-11-26] MEDS ORDERED: FENTANYL CITRATE/PF 50MCG/ML 2ML VIAL ONE (11:46)
[2019-11-26] MEDS ORDERED: MIDAZOLAM HCL 5 MG/5 ML VIAL IV PRN (11:56)
[2019-11-26] MEDS ORDERED: FENTANYL CITRATE/PF 50MCG/ML 2ML VIAL IV PRN (11:57)
[2019-11-26 13:34] LABS: PLATELET ESTIMATE INCREASED
[2019-11-26 16:00] VITALS: BP 149/70
[2019-11-26] MEDS ORDERED: DEXTROSE 50% WATER 50ML SYRINGE IV PRN (18:06)
[2019-11-26 20:00] VITALS: BP 117/58
[2019-11-26] MEDS ORDERED: EPOETIN ALFA 10000UNITS/ML VIAL SUBCUT SCH (21:00)
[2019-11-27] VITALS: BP 172/93
[2019-11-27 00:40] VITALS: BP 172/93
[2019-11-27 04:00] VITALS: BP 171/88
[2019-11-27] MEDS: MORPHINE SULFATE 2 MG/ML CPJ (NOT FOR IM USE) IV PRN ×2 (04:19→09:59)
[2019-11-27] MEDS: METOCLOPRAMIDE HCL 5MG TABLET PO SCH ×2 (06:54→13:07)
[2019-11-27] MEDS: BLOOD SUGAR DIAGNOSTIC STRIP TEST SCH ×2 (06:54→13:00)
[2019-11-27] MEDS: SEVELAMER CARBONATE 800 MG TABLET PO SCH ×2 (06:55→13:06)
[2019-11-27] MEDS ORDERED: CEFAZOLIN 2,000 MG in DEXT 5% WATER 100 ML IV SCH (07:00)
[2019-11-27] MEDS: DIPHENHYDRAMINE 50MG/ML VIAL IV PRN ×2 (07:00→13:13)
[2019-11-27] MEDS: INSULIN LISPRO 100 UNITS/ML SUBCUT SCH ×2 (07:15→12:50)
[2019-11-27 08:25] VITALS: BP 171/87
[2019-11-27 09:08] LABS: BASOPHILS % 0.6 % (0.0-2.0); EOSINOPHILS % 3.4 % (0.0-5.0); HEMATOCRIT. 23.6 % (42.0-52.0); HEMOGLOBIN. 7.8 g/dL (14.0-18.0); LYMPHOCYTES % 13.8 % (20.0-50.0); MEAN CORPUSCULAR HEMOGLOBIN 25.3 pg (28.0-32.0); MEAN CORPUSCULAR VOLUME 76.1 fL (80.0-94.0); MEAN PLATELET VOLUME 6.5 fl (7.4-10.4); MONOCYTES % 6.6 % (2.0-8.0); NEUTROPHILS % 75.6 % (40.0-76.0); PLATELET 561 x1000/uL (130-400); RED CELL DISTRIBUTION WIDTH 26.3 % (11.6-14.6)
[2019-11-27 09:12] LABS: PHOSPHORUS 4.7 mg/dL (2.5-4.9)
[2019-11-27] MEDS ORDERED: AMLODIPINE 5MG TABLET PO SCH (11:45)
[2019-11-27 13:55] VITALS: BP 187/99
[2019-11-27 14:02] VITALS: BP 187/91
[2019-11-27] MEDS ORDERED: VANCOMYCIN 1250MG in DEXTROSE 5% WATER 250ML IV NR (15:00)
== END 2019-11-27 16:00 | disposition home health service (06) | DRG 810 ==
LOC: ER 23:48 → ENRESERV 11-25 14:53 → ER 11-25 15:33 → 6WST 11-25 18:17
PROVIDERS: ADMIT Internal Medicine; ATTEND Internal Medicine
PROC: 5A1D70Z Performance of Urinary Filtration, Intermittent, Less than 6 Hours Per Day (ICD-10-PCS; 2019-11-25)
PROC: 30233N1 Transfusion of Nonautologous Red Blood Cells into Peripheral Vein, Percutaneous Approach (ICD-10-PCS; 2019-11-25)
PROC: 0DB68ZX Excision of Stomach, Via Natural or Artificial Opening Endoscopic, Diagnostic (ICD-10-PCS; 2019-11-26)
PROC: 5A1D70Z Performance of Urinary Filtration, Intermittent, Less than 6 Hours Per Day (ICD-10-PCS; principal; 2019-11-27)
DX: L76.22 Postprocedural hemorrhage of skin and subcutaneous tissue following other procedure (principal); E43 Unspecified severe protein-calorie malnutrition; E11.22 Type 2 diabetes mellitus with diabetic chronic kidney disease; K31.84 Gastroparesis; E11.43 Type 2 diabetes mellitus with diabetic autonomic (poly)neuropathy; E11.319 Type 2 diabetes mellitus with unspecified diabetic retinopathy without macular edema; C64.1 Malignant neoplasm of right kidney, except renal pelvis; E11.51 Type 2 diabetes mellitus with diabetic peripheral angiopathy without gangrene; E83.39 Other disorders of phosphorus metabolism; D62 Acute posthemorrhagic anemia; E87.5 Hyperkalemia; D63.8 Anemia in other chronic diseases classified elsewhere; I12.0 Hypertensive chronic kidney disease with stage 5 chronic kidney disease or end stage renal disease; D50.9 Iron deficiency anemia, unspecified; E78.5 Hyperlipidemia, unspecified; F41.9 Anxiety disorder, unspecified; J44.9 Chronic obstructive pulmonary disease, unspecified; L02.611 Cutaneous abscess of right foot; F32.9 Major depressive disorder, single episode, unspecified; N25.81 Secondary hyperparathyroidism of renal origin; E83.51 Hypocalcemia; E87.1 Hypo-osmolality and hyponatremia; N18.6 End stage renal disease; K80.20 Calculus of gallbladder without cholecystitis without obstruction; Y83.8 Other surgical procedures as the cause of abnormal reaction of the patient, or of later complication, without mention of misadventure at the time of the procedure; Y92.89 Other specified places as the place of occurrence of the external cause; Z99.2 Dependence on renal dialysis; Z79.4 Long term (current) use of insulin; Z87.891 Personal history of nicotine dependence; Z86.19 Personal history of other infectious and parasitic diseases; Z88.8 Allergy status to other drugs, medicaments and biological substances; Z89.512 Acquired absence of left leg below knee; Z68.27 Body mass index [BMI] 27.0-27.9, adult; Z79.82 Long term (current) use of aspirin; Z79.899 Other long term (current) drug therapy; Z89.421 Acquired absence of other right toe(s)
CPT/HCPCS: 36415; 80048; 80053; 80061; 80202; 82270; 82962; 83036; 83735; 84100; 85014; 85018; 85025; 85384; 86850; 86900; 86920; 88305; 88312; 88313; 93005; 93971; 99285; C9113; J0690; J0885; J1200; J1815; J2250; J2270; J2405; J2597; J2765; J3010; J3370; J7050; J7060; J8597; P9016

== ENCOUNTER 2020-03-01 14:25 | Inpatient (IN) | payer MEDICAID ==
[~2020-03-01] VITALS: Ht 172.7 cm; Wt 69.9 kg
[2020-03-01] MEDS ORDERED: SODIUM CHLORIDE 0.9% 1,000 ML IV ONE (15:12)
[2020-03-01 15:50] LABS: CHLORIDE 99 mEq/L (98-107)
[2020-03-01 16:01] LABS: BASOPHILS % 0.6 % (0.0-2.0); EOSINOPHILS % 3.5 % (0.0-5.0); HEMATOCRIT. 42.7 % (42.0-52.0); HEMOGLOBIN. 13.8 g/dL (14.0-18.0); LYMPHOCYTES % 18.2 % (20.0-50.0); MEAN CORPUSCULAR HEMOGLOBIN 26.3 pg (28.0-32.0); MEAN CORPUSCULAR VOLUME 81.4 fL (80.0-94.0); MEAN PLATELET VOLUME 7.4 fl (7.4-10.4); MONOCYTES % 3.6 % (2.0-8.0); NEUTROPHILS % 74.1 % (40.0-76.0); PLATELET 309 x1000/uL (130-400); RED BLOOD CELL COUNT 5.25 mill/uL (4.7-6.1)
[2020-03-01] MEDS ORDERED: ASPIRIN 325MG EC TABLET PO ONE (16:30)
[2020-03-01] MEDS ORDERED: ACETAMINOPHEN 325MG TABLET PO PRN (17:15)
[2020-03-01] MEDS ORDERED: MAGNESIUM/ALUMINUM HYDROXIDE/SIMETHICONE 30ML UDC PO PRN (17:15)
[2020-03-01] MEDS ORDERED: CLONIDINE 0.1MG TABLET PO PRN (17:15)
[2020-03-01] MEDS ORDERED: DOCUSATE SODIUM 100MG CAPSULE PO PRN (17:15)
[2020-03-01] MEDS ORDERED: ONDANSETRON HCL 4MG/2ML INJ IV PRN (17:15)
[2020-03-01 21:00] VITALS: BP 128/83
[2020-03-01] MEDS ORDERED: KETOROLAC 15MG/ML VIAL IV PRN (22:15)
[2020-03-01] MEDS: DIPHENHYDRAMINE 50MG/ML VIAL IV PRN (22:17)
[2020-03-01] MEDS: HYDROCODONE/ACETAMINOPHEN 5/325MG TABLET PO PRN (22:55)
[2020-03-02] VITALS: BP 122/86
[2020-03-02 04:00] VITALS: BP 118/82
[2020-03-02] MEDS: HYDROCODONE/ACETAMINOPHEN 5/325MG TABLET PO PRN ×2 (04:14→14:30)
[2020-03-02] MEDS: DIPHENHYDRAMINE 50MG/ML VIAL IV PRN ×2 (04:14→09:23)
[2020-03-02 06:11] LABS: BASOPHILS % 0.7 % (0.0-2.0); EOSINOPHILS % 6.6 % (0.0-5.0); HEMATOCRIT. 40.3 % (42.0-52.0); LYMPHOCYTES % 15.6 % (20.0-50.0); MEAN CORPUSCULAR HEMOGLOBIN 26.2 pg (28.0-32.0); MEAN CORPUSCULAR VOLUME 81.1 fL (80.0-94.0); MEAN PLATELET VOLUME 7.2 fl (7.4-10.4); MONOCYTES % 6.6 % (2.0-8.0); NEUTROPHILS % 70.5 % (40.0-76.0); PLATELET 296 x1000/uL (130-400); RED BLOOD CELL COUNT 4.97 mill/uL (4.7-6.1); RED CELL DISTRIBUTION WIDTH 18.2 % (11.6-14.6)
[2020-03-02 06:17] LABS: CHLORIDE 101 mEq/L (98-107)
[2020-03-02] MEDS ORDERED: DEXTROSE 50% WATER 50ML SYRINGE IV PRN (07:00)
[2020-03-02] MEDS: BLOOD SUGAR DIAGNOSTIC STRIP TEST SCH ×3 (07:20→17:18)
[2020-03-02] MEDS: INSULIN LISPRO 100 UNITS/ML SUBCUT SCH ×3 (07:50→17:19)
[2020-03-02 08:00] VITALS: BP 167/80
[2020-03-02] MEDS ORDERED: AMLODIPINE 10MG TABLET PO SCH (09:00)
[2020-03-02 12:00] VITALS: BP 145/76
[2020-03-02 15:56] VITALS: BP 121/87
[2020-03-02 16:00] VITALS: BP 149/85
== END 2020-03-02 19:00 | disposition home or self-care (01) | DRG 48 ==
LOC: ER 14:25 → 6WST 16:47 → ENRESERV 19:32
PROVIDERS: ADMIT Hospitalist; ATTEND Hospitalist
PROC: 5A1D70Z Performance of Urinary Filtration, Intermittent, Less than 6 Hours Per Day (ICD-10-PCS; principal; 2020-03-02)
DX: G90.8 Other disorders of autonomic nervous system (principal); E11.22 Type 2 diabetes mellitus with diabetic chronic kidney disease; E11.51 Type 2 diabetes mellitus with diabetic peripheral angiopathy without gangrene; N18.6 End stage renal disease; Z89.512 Acquired absence of left leg below knee; Z89.511 Acquired absence of right leg below knee; E03.9 Hypothyroidism, unspecified; E11.319 Type 2 diabetes mellitus with unspecified diabetic retinopathy without macular edema; E83.39 Other disorders of phosphorus metabolism; F32.9 Major depressive disorder, single episode, unspecified; F41.9 Anxiety disorder, unspecified; I12.0 Hypertensive chronic kidney disease with stage 5 chronic kidney disease or end stage renal disease; E78.5 Hyperlipidemia, unspecified; J44.9 Chronic obstructive pulmonary disease, unspecified; Z99.2 Dependence on renal dialysis; Z85.528 Personal history of other malignant neoplasm of kidney; Z87.891 Personal history of nicotine dependence; Z88.8 Allergy status to other drugs, medicaments and biological substances; Z90.5 Acquired absence of kidney; Z79.899 Other long term (current) drug therapy; Z79.82 Long term (current) use of aspirin; Z79.4 Long term (current) use of insulin; E43 Unspecified severe protein-calorie malnutrition
CPT/HCPCS: 36415; 71045; 80053; 82962; 83036; 83880; 84484; 85025; 93005; 96374; 99285; J1200; J7030

== ENCOUNTER 2020-03-06 16:39 | Inpatient (IN) | payer MEDICAID ==
[~2020-03-06] VITALS: Ht 177.8 cm; Wt 70.0 kg
[2020-03-06 17:45] LABS: CHLORIDE 102 mEq/L (98-107)
[2020-03-06 17:46] LABS: PROTHROMBIN TIME 10.6 sec (9.6-11.0)
[2020-03-06 17:51] LABS: BASOPHILS % 1.1 % (0.0-2.0); EOSINOPHILS % 10.2 % (0.0-5.0); HEMATOCRIT. 39.9 % (42.0-52.0); HEMOGLOBIN. 12.8 g/dL (14.0-18.0); LYMPHOCYTES % 17.2 % (20.0-50.0); MEAN CORPUSCULAR VOLUME 80.9 fL (80.0-94.0); MEAN PLATELET VOLUME 6.9 fl (7.4-10.4); NEUTROPHILS % 64.5 % (40.0-76.0); PLATELET 294 x1000/uL (130-400); RED BLOOD CELL COUNT 4.94 mill/uL (4.7-6.1); RED CELL DISTRIBUTION WIDTH 18.7 % (11.6-14.6)
[2020-03-06] MEDS ORDERED: MORPHINE SULFATE 4 MG/ML CPJ (NOT FOR IM USE) IV STA (18:17)
[2020-03-06] MEDS ORDERED: FUROSEMIDE 100MG/10ML VIAL IV STA (18:17)
[2020-03-06] MEDS ORDERED: SODIUM BICARBONATE 8.4% 1 MEQ/ML 50ML SYR IV ONE (18:30)
[2020-03-06] MEDS ORDERED: ALBUTEROL (0.083%) 2.5MG/3ML NEB HHN ONE (18:30)
[2020-03-06] MEDS ORDERED: INSULIN REGULAR (HUMULIN R) 300UNITS/3ML IV ONE (18:30)
[2020-03-06] MEDS ORDERED: DEXTROSE 50% WATER 50ML SYRINGE IV ONE ×3 (18:30→21:04)
[2020-03-06] MEDS ORDERED: CALCIUM CHLORIDE 1GM/10ML SYR IV ONE (18:30)
[2020-03-06] MEDS ORDERED: SODIUM BICARBONATE 8.4% 1 MEQ/ML 50ML SYR IV SCH (18:50)
[2020-03-06 18:54] LABS: CLARITY URINE CLEAR (CLEAR); COLOR URINE YELLOW (YELLOW); KETONES URINE NEGATIVE (NEGATIVE); LEUKOCYTE ESTERASE URINE NEGATIVE (NEGATIVE); NITRITE URINE NEGATIVE (NEGATIVE); OCCULT BLOOD URINE 1+ (NEGATIVE); PROTEIN URINE 4+ (NEGATIVE); SPECIFIC GRAVITY URINE 1.012 (1.005-1.030); UROBILINOGEN URINE 0.2 E.U./dL (0.2-1.0)
[2020-03-06] MEDS ORDERED: SODIUM POLYSTYRENE SULFONATE 15 G/60 ML BOT PO ONE (20:00)
[2020-03-06] MEDS ORDERED: INSU100I28 SQ (23:45)
[2020-03-07] VITALS (7 sets, daily range): BP systolic 113–197; BP diastolic 43–95
[2020-03-07] MEDS ORDERED: DEXTROSE 50% WATER 50ML SYRINGE IV PRN (00:15)
[2020-03-07] MEDS ORDERED: CLONIDINE 0.1MG TABLET PO PRN (00:15)
[2020-03-07] MEDS: HYDRALAZINE HCL 50MG TABLET PO SCH ×4 (00:22→21:13)
[2020-03-07] MEDS: MORPHINE SULFATE 2 MG/ML CPJ (NOT FOR IM USE) IV PRN ×2 (00:22→07:01)
[2020-03-07] MEDS ORDERED: DIPHENHYDRAMINE 50MG CAPSULE PO PRN (00:45)
[2020-03-07] MEDS: DIPHENHYDRAMINE 50MG/ML VIAL IV PRN ×4 (02:42→23:52)
[2020-03-07 06:16] LABS: BASOPHILS % 1.1 % (0.0-2.0); EOSINOPHILS % 6.8 % (0.0-5.0); HEMATOCRIT. 42.5 % (42.0-52.0); HEMOGLOBIN. 13.6 g/dL (14.0-18.0); LYMPHOCYTES % 20.4 % (20.0-50.0); MEAN CORPUSCULAR HEMOGLOBIN 25.9 pg (28.0-32.0); MEAN PLATELET VOLUME 7.1 fl (7.4-10.4); MONOCYTES % 7.5 % (2.0-8.0); NEUTROPHILS % 64.2 % (40.0-76.0); PLATELET 296 x1000/uL (130-400); RED BLOOD CELL COUNT 5.25 mill/uL (4.7-6.1); RED CELL DISTRIBUTION WIDTH 18.8 % (11.6-14.6)
[2020-03-07] MEDS: BLOOD SUGAR DIAGNOSTIC STRIP TEST SCH ×4 (07:20→20:23)
[2020-03-07 07:38] LABS: PHOSPHORUS 9.9 mg/dL (2.5-4.9)
[2020-03-07] MEDS: ASPIRIN 81MG EC TABLET PO SCH (08:42)
[2020-03-07] MEDS: CALCITRIOL 0.25MCG CAPSULE PO SCH (08:42)
[2020-03-07] MEDS: CALCIUM ACETATE 667MG CAPSULE PO SCH ×3 (08:42→17:53)
[2020-03-07] MEDS: FERROUS SULFATE 325MG TABLET PO SCH ×2 (08:42→17:53)
[2020-03-07] MEDS: NIFEDIPINE XL 60MG TAB PO SCH (08:42)
[2020-03-07] MEDS: INSULIN LISPRO 100 UNITS/ML SUBCUT SCH ×4 (08:43→20:24)
[2020-03-07] MEDS: HYDROCODONE/ACETAMINOPHEN 10/325MG TABLET PO PRN ×2 (13:46→20:23)
[2020-03-07] MEDS ORDERED: ENOXAPARIN 30MG/0.3ML SYR SUBCUT SCH (20:00)
[2020-03-07] MEDS ORDERED: ATORVASTATIN CALCIUM 10MG TABLET PO SCH (21:00)
[2020-03-08 00:28] VITALS: BP 137/97
[2020-03-08 04:00] VITALS: BP 153/86
[2020-03-08] MEDS: HYDROCODONE/ACETAMINOPHEN 10/325MG TABLET PO PRN (04:22)
[2020-03-08] MEDS: HYDRALAZINE HCL 50MG TABLET PO SCH ×2 (06:16→15:39)
[2020-03-08] MEDS: DIPHENHYDRAMINE 50MG/ML VIAL IV PRN ×2 (06:16→13:46)
[2020-03-08 06:17] LABS: BASOPHILS % 1.3 % (0.0-2.0); EOSINOPHILS % 9.2 % (0.0-5.0); HEMATOCRIT. 40.8 % (42.0-52.0); HEMOGLOBIN. 13.1 g/dL (14.0-18.0); LYMPHOCYTES % 25.4 % (20.0-50.0); MEAN CORPUSCULAR HEMOGLOBIN 26.1 pg (28.0-32.0); MEAN CORPUSCULAR VOLUME 81.3 fL (80.0-94.0); MEAN PLATELET VOLUME 7.1 fl (7.4-10.4); MONOCYTES % 10.9 % (2.0-8.0); NEUTROPHILS % 53.2 % (40.0-76.0); PLATELET 272 x1000/uL (130-400); RED BLOOD CELL COUNT 5.01 mill/uL (4.7-6.1); RED CELL DISTRIBUTION WIDTH 18.7 % (11.6-14.6)
[2020-03-08 06:20] LABS: PHOSPHORUS 7.9 mg/dL (2.5-4.9)
[2020-03-08] MEDS: BLOOD SUGAR DIAGNOSTIC STRIP TEST SCH ×2 (06:23→12:13)
[2020-03-08] MEDS: INSULIN LISPRO 100 UNITS/ML SUBCUT SCH ×2 (06:47→12:14)
[2020-03-08 08:08] VITALS: BP 122/71
[2020-03-08] MEDS: NIFEDIPINE XL 60MG TAB PO SCH (08:48)
[2020-03-08] MEDS: FERROUS SULFATE 325MG TABLET PO SCH (08:48)
[2020-03-08] MEDS: CALCITRIOL 0.25MCG CAPSULE PO SCH (08:48)
[2020-03-08] MEDS: ASPIRIN 81MG EC TABLET PO SCH (08:48)
[2020-03-08] MEDS ORDERED: HYDROCODONE/ACETAMINOPHEN 10/325MG TABLET PO PRN (09:30)
[2020-03-08 12:09] VITALS: BP 114/74
[2020-03-08] MEDS: CALCIUM ACETATE 667MG CAPSULE PO SCH (15:39)
[2020-03-08 16:15] VITALS: BP 113/66
[2020-03-08 16:45] VITALS: BP 114/74
== END 2020-03-08 17:45 | disposition home or self-care (01) | DRG 425 ==
LOC: ER 16:39 → 6WST 19:08 → ENRESERV 22:04
PROVIDERS: ADMIT Internal Medicine; ATTEND Internal Medicine
PROC: 5A1D70Z Performance of Urinary Filtration, Intermittent, Less than 6 Hours Per Day (ICD-10-PCS; principal; 2020-03-07)
DX: E87.5 Hyperkalemia (principal); E11.43 Type 2 diabetes mellitus with diabetic autonomic (poly)neuropathy; E11.649 Type 2 diabetes mellitus with hypoglycemia without coma; E87.1 Hypo-osmolality and hyponatremia; E43 Unspecified severe protein-calorie malnutrition; C64.9 Malignant neoplasm of unspecified kidney, except renal pelvis; E11.22 Type 2 diabetes mellitus with diabetic chronic kidney disease; E78.5 Hyperlipidemia, unspecified; J44.9 Chronic obstructive pulmonary disease, unspecified; K75.9 Inflammatory liver disease, unspecified; E05.90 Thyrotoxicosis, unspecified without thyrotoxic crisis or storm; E83.39 Other disorders of phosphorus metabolism; E11.319 Type 2 diabetes mellitus with unspecified diabetic retinopathy without macular edema; F41.9 Anxiety disorder, unspecified; F32.9 Major depressive disorder, single episode, unspecified; D64.9 Anemia, unspecified; I12.0 Hypertensive chronic kidney disease with stage 5 chronic kidney disease or end stage renal disease; N18.6 End stage renal disease; Z79.4 Long term (current) use of insulin; Z79.82 Long term (current) use of aspirin; Z79.899 Other long term (current) drug therapy; Z90.5 Acquired absence of kidney; Z88.8 Allergy status to other drugs, medicaments and biological substances; Z68.22 Body mass index [BMI] 22.0-22.9, adult
CPT/HCPCS: 36415; 71045; 80048; 80053; 80061; 81003; 82962; 83036; 84100; 85025; 93005; 96374; 99291; J1200; J1650; J1815; J1940; J2270; J3490; Q0163

== ENCOUNTER 2020-04-05 14:04 | Emergency (ER) | payer MEDICAID ==
[~2020-04-05] VITALS: Ht 177.8 cm; Wt 75.0 kg
[~2020-04-05 14:04] MED LIST changes: +INSU100I28 SQ; -[UNRECOGNIZED DRUG - CODE] IV
[2020-04-05] MEDS ORDERED: MORPHINE SULFATE 4 MG/ML CPJ (NOT FOR IM USE) IV STA (14:23)
[2020-04-05] MEDS ORDERED: ONDANSETRON HCL 4MG/2ML INJ IV STA (14:23)
[2020-04-05 15:58] LABS: BASOPHILS % 0.6 % (0.0-2.0); EOSINOPHILS % 6.1 % (0.0-5.0); HEMATOCRIT. 40.6 % (42.0-52.0); HEMOGLOBIN. 13.1 g/dL (14.0-18.0); LYMPHOCYTES % 16.8 % (20.0-50.0); MEAN CORPUSCULAR HEMOGLOBIN 25.5 pg (28.0-32.0); MEAN CORPUSCULAR VOLUME 79.2 fL (80.0-94.0); MEAN PLATELET VOLUME 7.4 fl (7.4-10.4); MONOCYTES % 5.6 % (2.0-8.0); NEUTROPHILS % 70.9 % (40.0-76.0); PLATELET 288 x1000/uL (130-400); RED BLOOD CELL COUNT 5.13 mill/uL (4.7-6.1); RED CELL DISTRIBUTION WIDTH 18.6 % (11.6-14.6)
[2020-04-05 16:16] LABS: CHLORIDE 103 mEq/L (98-107)
[2020-04-05 17:31] VITALS: BP 155/91
== END 2020-04-05 17:42 | disposition home or self-care (01) ==
LOC: ER 14:04
DX: M25.562 Pain in left knee (principal); E11.22 Type 2 diabetes mellitus with diabetic chronic kidney disease; I12.0 Hypertensive chronic kidney disease with stage 5 chronic kidney disease or end stage renal disease; N18.6 End stage renal disease; F17.210 Nicotine dependence, cigarettes, uncomplicated; Z85.528 Personal history of other malignant neoplasm of kidney; Z89.512 Acquired absence of left leg below knee; Z89.511 Acquired absence of right leg below knee; Z99.2 Dependence on renal dialysis; Z79.4 Long term (current) use of insulin; Z79.82 Long term (current) use of aspirin; Z88.6 Allergy status to analgesic agent; Z99.3 Dependence on wheelchair; W05.0XXA Fall from non-moving wheelchair, initial encounter; Y93.89 Activity, other specified; Y92.018 Other place in single-family (private) house as the place of occurrence of the external cause
CPT/HCPCS: 36415; 71045; 73564; 80053; 85025; 93005; 96374; 96375; 99285; J2270; J2405

== ENCOUNTER 2020-04-07 11:21 | Emergency (ER) | payer MEDICAID ==
[~2020-04-07] VITALS: Ht 177.8 cm; Wt 78.0 kg
[2020-04-07] MEDS ORDERED: ONDANSETRON HCL 4MG/2ML INJ IV STA (12:03)
[2020-04-07 12:14] LABS: BASOPHILS % 0.8 % (0.0-2.0); EOSINOPHILS % 4.1 % (0.0-5.0); HEMATOCRIT. 42.5 % (42.0-52.0); HEMOGLOBIN. 13.7 g/dL (14.0-18.0); LYMPHOCYTES % 10.2 % (20.0-50.0); MEAN CORPUSCULAR HEMOGLOBIN 25.8 pg (28.0-32.0); MEAN CORPUSCULAR VOLUME 80.1 fL (80.0-94.0); MEAN PLATELET VOLUME 7.3 fl (7.4-10.4); MONOCYTES % 4.4 % (2.0-8.0); NEUTROPHILS % 80.5 % (40.0-76.0); PLATELET 291 x1000/uL (130-400); RED BLOOD CELL COUNT 5.31 mill/uL (4.7-6.1); RED CELL DISTRIBUTION WIDTH 18.3 % (11.6-14.6)
[2020-04-07 12:20] LABS: CHLORIDE 98 mEq/L (98-107)
[2020-04-07] MEDS ORDERED: ACETAMINOPHEN 325MG TABLET PO NR (14:30)
[2020-04-07] MEDS ORDERED: POLYETHYLENE GLYCOL 3350 (17GM) 1 DOSE PACK PO NR (15:00)
[2020-04-07 17:23] VITALS: BP 146/71
== END 2020-04-07 18:14 | disposition home or self-care (01) ==
LOC: ER 11:32
DX: K59.00 Constipation, unspecified (principal); R11.0 Nausea; I12.0 Hypertensive chronic kidney disease with stage 5 chronic kidney disease or end stage renal disease; E11.22 Type 2 diabetes mellitus with diabetic chronic kidney disease; N18.6 End stage renal disease; I73.9 Peripheral vascular disease, unspecified; Z79.4 Long term (current) use of insulin; Z98.2 Presence of cerebrospinal fluid drainage device; Z99.2 Dependence on renal dialysis; Z89.511 Acquired absence of right leg below knee; Z89.512 Acquired absence of left leg below knee
CPT/HCPCS: 36415; 74018; 80053; 85025; 96374; 99285; J2405; Z7610

== ENCOUNTER 2021-02-27 20:36 | Inpatient (IN) | payer MEDICAID ==
[~2021-02-27] VITALS: Ht 175.3 cm; Wt 72.6 kg
[~2021-02-27 20:36] MED LIST changes: +AMLO2.5T45 PO; -ASPI-1158 PO; +ASPI-1406 PO; -CALC0.253 MT; -FERR325T6 PO; +FISH GT; +HYDR-4009 MT; +OXYC1TAB21 PO
[2021-02-27 22:24] LABS: BASOPHILS % 0.5 % (0.0-2.0); EOSINOPHILS % 4.4 % (0.0-5.0); HEMATOCRIT. 30.7 % (42.0-52.0); HEMOGLOBIN. 10.2 g/dL (14.0-18.0); LYMPHOCYTES % 9.3 % (20.0-50.0); MEAN CORPUSCULAR HEMOGLOBIN 28.9 pg (28.0-32.0); MEAN CORPUSCULAR VOLUME 87.1 fL (80.0-94.0); MEAN PLATELET VOLUME 7.1 fl (7.4-10.4); MONOCYTES % 4.3 % (2.0-8.0); NEUTROPHILS % 81.5 % (40.0-76.0); PLATELET 286 x1000/uL (130-400); RED BLOOD CELL COUNT 3.53 mill/uL (4.7-6.1); RED CELL DISTRIBUTION WIDTH 13.9 % (11.6-14.6)
[2021-02-28] MEDS ORDERED: HYDROCODONE/ACETAMINOPHEN 5/325MG TABLET PO PRN ×2 (00:45→02:15)
[2021-02-28] MEDS ORDERED: ACETAMINOPHEN 325MG TABLET PO PRN (02:15)
[2021-02-28] MEDS: HYDROCODONE/ACETAMINOPHEN 10/325MG TABLET PO PRN ×3 (02:54→18:15)
[2021-02-28] MEDS ORDERED: SODIUM POLYSTYRENE SULFONATE 15 G/60 ML BOT PO NR (03:45)
[2021-02-28 05:47] LABS: HEMATOCRIT. 30.1 % (42.0-52.0); HEMOGLOBIN. 9.9 g/dL (14.0-18.0); MEAN CORPUSCULAR VOLUME 88.5 fL (80.0-94.0); PLATELET 280 x1000/uL (130-400); RED CELL DISTRIBUTION WIDTH 14.2 % (11.6-14.6)
[2021-02-28 05:49] LABS: CHLORIDE 97 mEq/L (98-107)
[2021-02-28] MEDS ORDERED: NALOXONE HCL 0.4MG/ML VIAL IV PRN (07:30)
[2021-02-28] MEDS ORDERED: VANCOMYCIN 1 G PREMIX 200 ML IV SCH (10:00)
[2021-02-28 11:00] VITALS: BP 142/68
[2021-02-28] MEDS ORDERED: VANCOMYCIN 1,750 MG in DEXT 5% WATER 500 ML IV NR (11:00)
[2021-02-28] MEDS ORDERED: CEFEPIME 1,000 MG in DEXTROSE 5% WATER 50 ML IV SCH (11:00)
[2021-02-28] MEDS ORDERED: SODIUM POLYSTYRENE SULFONATE 15 G/60 ML BOT PO SCH (11:00)
[2021-02-28 12:00] VITALS: BP 121/67
[2021-02-28] MEDS: ENOXAPARIN 30MG/0.3ML SYR SUBCUT SCH (12:48)
[2021-02-28 14:32] LABS: HEPATITIS B SURFACE ANTIGEN NEGATIVE
[2021-02-28 15:02] LABS: HEPATITIS A AB IGM NEGATIVE (NEGATIVE)
[2021-02-28 16:00] VITALS: BP 97/40
[2021-02-28 17:21] LABS: PLATELET ESTIMATE NORMAL
[2021-02-28] MEDS ORDERED: FERR325T6 PO (19:05)
[2021-02-28] MEDS ORDERED: DIPH25TA26 PO (19:06)
[2021-02-28 20:00] VITALS: BP 94/43
[2021-02-28] MEDS ORDERED: *PATIENT'S OWN MEDICATION STORAGE XX SCH (20:45)
[2021-02-28] MEDS ORDERED: DIPHENHYDRAMINE 25MG CAPSULE PO NR (23:30)
[2021-03-01] VITALS: BP 134/77
[2021-03-01 04:00] VITALS: BP 115/55
[2021-03-01] MEDS ORDERED: ALTEPLASE 2MG/VIAL ITC NR (04:00)
[2021-03-01] MEDS: EPOETIN ALFA-EPBX 4,000 UNIT/ML VIAL SUBCUT SCH (04:44)
[2021-03-01 08:00] VITALS: BP 96/49
[2021-03-01 08:02] LABS: HEMATOCRIT. 27.9 % (42.0-52.0); HEMOGLOBIN. 8.8 g/dL (14.0-18.0); MEAN CORPUSCULAR HEMOGLOBIN 28.2 pg (28.0-32.0); MEAN CORPUSCULAR VOLUME 89.3 fL (80.0-94.0); MEAN PLATELET VOLUME 7.3 fl (7.4-10.4); PLATELET 225 x1000/uL (130-400); RED BLOOD CELL COUNT 3.13 mill/uL (4.7-6.1)
[2021-03-01 08:09] LABS: PHOSPHORUS 2.8 mg/dL (2.5-4.9)
[2021-03-01] MEDS: HYDROCODONE/ACETAMINOPHEN 10/325MG TABLET PO PRN ×2 (09:50→16:35)
[2021-03-01] MEDS: ENOXAPARIN 30MG/0.3ML SYR SUBCUT SCH (09:50)
[2021-03-01 12:00] VITALS: BP 137/75
[2021-03-01] MEDS: CEFEPIME 2,000 MG in DEXT 5% WATER 100 ML IV SCH (13:47)
[2021-03-01 16:00] VITALS: BP 159/80
[2021-03-01 20:00] VITALS: BP 138/72
[2021-03-01 22:26] LABS: PLATELET ESTIMATE NORMAL
[2021-03-02] VITALS: BP 126/63
[2021-03-02] MEDS: HYDROCODONE/ACETAMINOPHEN 10/325MG TABLET PO PRN ×2 (00:11→12:58)
[2021-03-02] MEDS: DIPHENHYDRAMINE 25MG CAPSULE PO PRN ×2 (03:51→23:41)
[2021-03-02 04:00] VITALS: BP 141/66
[2021-03-02 07:30] LABS: CHLORIDE 104 mEq/L (98-107)
[2021-03-02 07:42] LABS: PHOSPHORUS 3.8 mg/dL (2.5-4.9)
[2021-03-02 07:46] LABS: BASOPHILS % 0.5 % (0.0-2.0); EOSINOPHILS % 2.1 % (0.0-5.0); HEMATOCRIT. 28.1 % (42.0-52.0); HEMOGLOBIN. 9.2 g/dL (14.0-18.0); LYMPHOCYTES % 7.1 % (20.0-50.0); MEAN CORPUSCULAR VOLUME 88.1 fL (80.0-94.0); MEAN PLATELET VOLUME 7.5 fl (7.4-10.4); MONOCYTES % 6.5 % (2.0-8.0); NEUTROPHILS % 83.8 % (40.0-76.0); PLATELET 218 x1000/uL (130-400); RED BLOOD CELL COUNT 3.19 mill/uL (4.7-6.1); RED CELL DISTRIBUTION WIDTH 14.4 % (11.6-14.6)
[2021-03-02] MEDS: ENOXAPARIN 30MG/0.3ML SYR SUBCUT SCH (09:00)
[2021-03-02 09:33] LABS: PROTHROMBIN TIME 10.9 sec (9.6-11.0)
[2021-03-02] MEDS ORDERED: LIDOCAINE HCL 1% 20ML VIAL (Pyxis) INJ ONE (09:37)
[2021-03-02 12:00] VITALS: BP 131/43
[2021-03-02] MEDS: CEFEPIME 2,000 MG in DEXT 5% WATER 100 ML IV SCH (15:39)
[2021-03-02 16:13] VITALS: BP 149/58
[2021-03-02] MEDS ORDERED: MAGNESIUM HYDROXIDE 400MG/5ML 30ML UDC PO PRN (17:30)
[2021-03-02 20:00] VITALS: BP 110/60
[2021-03-02] MEDS: EPOETIN ALFA-EPBX 4,000 UNIT/ML VIAL SUBCUT SCH (20:39)
[2021-03-03] VITALS: BP 162/73
[2021-03-03 04:00] VITALS: BP 178/86
[2021-03-03] MEDS: HYDRALAZINE HCL 25MG TABLET PO PRN ×2 (06:57→21:45)
[2021-03-03 08:00] VITALS: BP 120/72
[2021-03-03 08:16] LABS: BASOPHILS % 1.1 % (0.0-2.0); EOSINOPHILS % 5.2 % (0.0-5.0); HEMATOCRIT. 30.6 % (42.0-52.0); HEMOGLOBIN. 9.8 g/dL (14.0-18.0); LYMPHOCYTES % 17.5 % (20.0-50.0); MEAN CORPUSCULAR HEMOGLOBIN 28.9 pg (28.0-32.0); MEAN PLATELET VOLUME 7.7 fl (7.4-10.4); MONOCYTES % 11.1 % (2.0-8.0); NEUTROPHILS % 65.1 % (40.0-76.0); PLATELET 263 x1000/uL (130-400); RED BLOOD CELL COUNT 3.39 mill/uL (4.7-6.1); RED CELL DISTRIBUTION WIDTH 14.8 % (11.6-14.6)
[2021-03-03 08:26] LABS: CHLORIDE 101 mEq/L (98-107)
[2021-03-03] MEDS: SENNOSIDES 8.6MG TABLET PO SCH ×2 (08:46→18:00)
[2021-03-03] MEDS: ENOXAPARIN 30MG/0.3ML SYR SUBCUT SCH (08:46)
[2021-03-03] MEDS: POLYETHYLENE GLYCOL 3350 (17GM) 1 DOSE PACK PO SCH (08:46)
[2021-03-03 12:00] VITALS: BP 115/64
[2021-03-03] MEDS: CEFEPIME 1,000 MG in DEXTROSE 5% WATER 50 ML IV SCH (15:57)
[2021-03-03 16:00] VITALS: BP 154/79
[2021-03-03] MEDS: HYDROCODONE/ACETAMINOPHEN 10/325MG TABLET PO PRN (18:42)
[2021-03-03 20:00] VITALS: BP 182/80
[2021-03-03] MEDS: DIPHENHYDRAMINE 25MG CAPSULE PO PRN (23:33)
[2021-03-04] VITALS: BP 173/63
[2021-03-04 04:00] VITALS: BP 171/85
[2021-03-04] MEDS: HYDRALAZINE HCL 25MG TABLET PO PRN (04:48)
[2021-03-04 08:00] VITALS: BP 182/70
[2021-03-04] MEDS: SENNOSIDES 8.6MG TABLET PO SCH ×2 (09:00→17:03)
[2021-03-04] MEDS: POLYETHYLENE GLYCOL 3350 (17GM) 1 DOSE PACK PO SCH (09:00)
[2021-03-04] MEDS: ENOXAPARIN 30MG/0.3ML SYR SUBCUT SCH (09:01)
[2021-03-04 12:00] VITALS: BP 157/82
[2021-03-04 13:25] LABS: BASOPHILS % 0.5 % (0.0-2.0); EOSINOPHILS % 4.2 % (0.0-5.0); HEMATOCRIT. 28.7 % (42.0-52.0); HEMOGLOBIN. 9.6 g/dL (14.0-18.0); LYMPHOCYTES % 11.8 % (20.0-50.0); MEAN CORPUSCULAR HEMOGLOBIN 29.4 pg (28.0-32.0); MEAN CORPUSCULAR VOLUME 88.1 fL (80.0-94.0); MEAN PLATELET VOLUME 7.3 fl (7.4-10.4); MONOCYTES % 6.4 % (2.0-8.0); NEUTROPHILS % 77.1 % (40.0-76.0); PLATELET 308 x1000/uL (130-400); RED BLOOD CELL COUNT 3.26 mill/uL (4.7-6.1); RED CELL DISTRIBUTION WIDTH 14.5 % (11.6-14.6)
[2021-03-04 13:31] LABS: PROTHROMBIN TIME 10.5 sec (9.6-11.0)
[2021-03-04 13:41] LABS: PHOSPHORUS 3.9 mg/dL (2.5-4.9)
[2021-03-04] MEDS: CEFEPIME 1,000 MG in DEXTROSE 5% WATER 50 ML IV SCH (15:25)
[2021-03-04] MEDS: AMLODIPINE 10MG TABLET PO SCH (15:25)
[2021-03-04 16:00] VITALS: BP 161/50
[2021-03-04 20:26] VITALS: BP 122/107
[2021-03-04] MEDS: EPOETIN ALFA-EPBX 4,000 UNIT/ML VIAL SUBCUT SCH (21:01)
[2021-03-04] MEDS: HYDRALAZINE HCL 50MG TABLET PO SCH (21:01)
[2021-03-04 21:55] LABS: HEPATITIS B SURFACE ANTIGEN NEGATIVE
[2021-03-04 22:25] LABS: HEPATITIS A AB IGM NEGATIVE (NEGATIVE)
[2021-03-05] VITALS: BP 152/71
[2021-03-05 04:00] VITALS: BP 136/58
[2021-03-05 05:25] VITALS: BP 136/48
[2021-03-05 05:42] LABS: BASOPHILS % 0.6 % (0.0-2.0); EOSINOPHILS % 3.7 % (0.0-5.0); HEMATOCRIT. 30.8 % (42.0-52.0); HEMOGLOBIN. 9.9 g/dL (14.0-18.0); MEAN CORPUSCULAR VOLUME 90.7 fL (80.0-94.0); MONOCYTES % 6.2 % (2.0-8.0); NEUTROPHILS % 81.5 % (40.0-76.0); PLATELET 311 x1000/uL (130-400); RED CELL DISTRIBUTION WIDTH 14.7 % (11.6-14.6)
[2021-03-05 06:09] LABS: PROTHROMBIN TIME 10.5 sec (9.6-11.0)
[2021-03-05 06:34] LABS: PHOSPHORUS 3.7 mg/dL (2.5-4.9)
[2021-03-05] MEDS ORDERED: FENTANYL CITRATE/PF 50MCG/ML 2ML VIAL ONE (08:46)
[2021-03-05] MEDS ORDERED: LIDOCAINE HCL 1% 20ML VIAL (Pyxis) INJ ONE (08:47)
[2021-03-05] MEDS ORDERED: SODIUM BICARBONATE 4% (2.4MEQ) 5ML VIAL IV ONE (08:47)
[2021-03-05] MEDS ORDERED: HEPARIN 1000 UNITS/ML 10ML ONE (08:47)
[2021-03-05 09:28] VITALS: BP 136/48
[2021-03-05] MEDS: POLYETHYLENE GLYCOL 3350 (17GM) 1 DOSE PACK PO SCH (10:56)
[2021-03-05] MEDS: AMLODIPINE 10MG TABLET PO SCH (10:57)
[2021-03-05] MEDS: HYDRALAZINE HCL 50MG TABLET PO SCH ×2 (10:57→21:00)
[2021-03-05] MEDS: SENNOSIDES 8.6MG TABLET PO SCH ×2 (10:57→17:25)
[2021-03-05] MEDS ORDERED: EPOE40009 SUBCUT (13:11)
[2021-03-05] MEDS ORDERED: POLY17PO3 PO (13:11)
[2021-03-05] MEDS ORDERED: ONDA4TAB11 PO (13:14)
[2021-03-05] MEDS: CEFEPIME 1,000 MG in DEXTROSE 5% WATER 50 ML IV SCH (15:18)
[2021-03-05 21:18] VITALS: BP 115/61
[2021-03-06] MEDS: ONDANSETRON HCL 4MG/2ML INJ IV PRN (03:38)
[2021-03-06] MEDS: ENOXAPARIN 30MG/0.3ML SYR SUBCUT SCH (08:38)
[2021-03-06] MEDS: SENNOSIDES 8.6MG TABLET PO SCH ×3 (09:00→17:00)
[2021-03-06] MEDS: AMLODIPINE 10MG TABLET PO SCH ×2 (09:00→11:08)
[2021-03-06] MEDS: POLYETHYLENE GLYCOL 3350 (17GM) 1 DOSE PACK PO SCH (09:00)
[2021-03-06] MEDS: HYDRALAZINE HCL 50MG TABLET PO SCH ×3 (09:00→21:00)
[2021-03-06 12:48] LABS: BASOPHILS % 0.4 % (0.0-2.0); EOSINOPHILS % 1.4 % (0.0-5.0); HEMATOCRIT. 33.8 % (42.0-52.0); HEMOGLOBIN. 10.9 g/dL (14.0-18.0); LYMPHOCYTES % 9.8 % (20.0-50.0); MEAN CORPUSCULAR HEMOGLOBIN 28.9 pg (28.0-32.0); MEAN CORPUSCULAR VOLUME 89.6 fL (80.0-94.0); MEAN PLATELET VOLUME 6.9 fl (7.4-10.4); MONOCYTES % 5.5 % (2.0-8.0); NEUTROPHILS % 82.9 % (40.0-76.0); PLATELET 421 x1000/uL (130-400); RED BLOOD CELL COUNT 3.77 mill/uL (4.7-6.1); RED CELL DISTRIBUTION WIDTH 14.7 % (11.6-14.6)
[2021-03-06 13:00] LABS: CHLORIDE 103 mEq/L (98-107)
[2021-03-06 13:05] LABS: PHOSPHORUS 4.5 mg/dL (2.5-4.9)
[2021-03-06] MEDS: CEFEPIME 1,000 MG in DEXTROSE 5% WATER 50 ML IV SCH (15:32)
[2021-03-06 20:00] VITALS: BP 117/54
[2021-03-07] VITALS: BP 161/59
[2021-03-07 01:17] VITALS: BP 161/59
[2021-03-07 04:00] VITALS: BP 148/97
[2021-03-07] MEDS: ONDANSETRON HCL 4MG/2ML INJ IV PRN (05:22)
[2021-03-07 06:39] LABS: BASOPHILS % 0.9 % (0.0-2.0); EOSINOPHILS % 0.6 % (0.0-5.0); HEMATOCRIT. 33.5 % (42.0-52.0); HEMOGLOBIN. 10.7 g/dL (14.0-18.0); LYMPHOCYTES % 10.1 % (20.0-50.0); MEAN CORPUSCULAR HEMOGLOBIN 28.3 pg (28.0-32.0); MEAN CORPUSCULAR VOLUME 88.6 fL (80.0-94.0); MEAN PLATELET VOLUME 7.2 fl (7.4-10.4); NEUTROPHILS % 83.4 % (40.0-76.0); PLATELET 493 x1000/uL (130-400); RED BLOOD CELL COUNT 3.77 mill/uL (4.7-6.1); RED CELL DISTRIBUTION WIDTH 14.9 % (11.6-14.6)
[2021-03-07 07:03] LABS: PHOSPHORUS 5.6 mg/dL (2.5-4.9)
[2021-03-07 07:12] LABS: CHLORIDE 103 mEq/L (98-107)
[2021-03-07 08:00] VITALS: BP 110/80
[2021-03-07] MEDS: SENNOSIDES 8.6MG TABLET PO SCH ×2 (09:00→17:00)
[2021-03-07] MEDS: HYDRALAZINE HCL 50MG TABLET PO SCH ×5 (09:00→23:59)
[2021-03-07] MEDS: AMLODIPINE 10MG TABLET PO SCH (09:00)
[2021-03-07] MEDS: POLYETHYLENE GLYCOL 3350 (17GM) 1 DOSE PACK PO SCH (09:00)
[2021-03-07] MEDS: ENOXAPARIN 30MG/0.3ML SYR SUBCUT SCH (09:24)
[2021-03-07 12:00] VITALS: BP 176/74
[2021-03-07] MEDS: CALCIUM ACETATE 667MG CAPSULE PO SCH ×2 (13:35→17:25)
[2021-03-07] MEDS: CEFEPIME 1,000 MG in DEXTROSE 5% WATER 50 ML IV SCH (13:39)
[2021-03-07] MEDS ORDERED: HALOPERIDOL LACTATE 5MG/ML VIAL IM NR (15:43)
[2021-03-07] MEDS ORDERED: LORAZEPAM 2MG/ML CPJ IV NR (15:45)
[2021-03-07] MEDS: QUETIAPINE FUMARATE 50MG TABLET PO SCH ×4 (17:25→23:59)
[2021-03-07 20:00] VITALS: BP 115/57
[2021-03-07] MEDS: METOPROLOL TARTRATE 25MG TABLET PO SCH ×2 (21:00→22:38)
[2021-03-07] MEDS: HALOPERIDOL LACTATE 5MG/ML VIAL IM PRN (23:58)
[2021-03-08] VITALS: BP 170/95
[2021-03-08] MEDS: METOPROLOL TARTRATE 25MG TABLET PO SCH ×4 (00:04→21:18)
[2021-03-08] MEDS: HALOPERIDOL LACTATE 5MG/ML VIAL IM PRN (06:14)
[2021-03-08] MEDS: CALCIUM ACETATE 667MG CAPSULE PO SCH ×4 (07:50→17:21)
[2021-03-08] MEDS: POLYETHYLENE GLYCOL 3350 (17GM) 1 DOSE PACK PO SCH (09:00)
[2021-03-08] MEDS: AMLODIPINE 10MG TABLET PO SCH ×2 (09:00→10:26)
[2021-03-08] MEDS: ENOXAPARIN 30MG/0.3ML SYR SUBCUT SCH ×2 (09:00→10:27)
[2021-03-08] MEDS: QUETIAPINE FUMARATE 50MG TABLET PO SCH ×3 (09:00→21:30)
[2021-03-08] MEDS: SENNOSIDES 8.6MG TABLET PO SCH ×2 (09:00→17:00)
[2021-03-08] MEDS ORDERED: CLONIDINE HCL 0.3MG/24HR PATCH TD SCH (16:00)
[2021-03-08] MEDS: CEFTAZIDIME PENTAHYDRATE 1 G in DEXTROSE 5% WATER 50 ML IV SCH (17:17)
[2021-03-08 20:00] VITALS: BP 192/89
[2021-03-08] MEDS ORDERED: HYDRALAZINE 20MG/ML VIAL IV PRN (20:30)
[2021-03-08] MEDS: HYDRALAZINE HCL 50MG TABLET PO SCH (21:18)
[2021-03-09] VITALS: BP 186/87
[2021-03-09] MEDS: HYDRALAZINE 10 MG in SODIUM CHLORIDE 0.9% 49.5 ML IV PRN ×2 (00:24→06:10)
[2021-03-09 04:00] VITALS: BP 164/73
[2021-03-09] MEDS: HALOPERIDOL LACTATE 5MG/ML VIAL IM PRN (04:17)
[2021-03-09] MEDS: CALCIUM ACETATE 667MG CAPSULE PO SCH ×3 (07:50→17:35)
[2021-03-09] MEDS: QUETIAPINE FUMARATE 50MG TABLET PO SCH ×2 (09:00→21:45)
[2021-03-09] MEDS: METOPROLOL TARTRATE 25MG TABLET PO SCH ×2 (09:00→21:45)
[2021-03-09] MEDS: HYDRALAZINE HCL 50MG TABLET PO SCH ×2 (09:00→21:45)
[2021-03-09] MEDS: POLYETHYLENE GLYCOL 3350 (17GM) 1 DOSE PACK PO SCH (09:00)
[2021-03-09] MEDS: ENOXAPARIN 30MG/0.3ML SYR SUBCUT SCH (09:00)
[2021-03-09] MEDS: SENNOSIDES 8.6MG TABLET PO SCH ×2 (09:00→17:00)
[2021-03-09] MEDS: CEFTAZIDIME PENTAHYDRATE 1 G in DEXTROSE 5% WATER 50 ML IV SCH (17:34)
[2021-03-09] MEDS: AMLODIPINE 10MG TABLET PO SCH ×2 (17:35→21:44)
[2021-03-09 20:00] VITALS: BP 133/78
[2021-03-09] MEDS: POLYVINYL ALCOHOL OPHTH DROPS 15ML BOTHEYE SCH (21:44)
[2021-03-10] VITALS: BP 154/69
[2021-03-10 04:00] VITALS: BP 123/74
[2021-03-10] MEDS: POLYVINYL ALCOHOL OPHTH DROPS 15ML BOTHEYE SCH ×3 (06:00→18:06)
[2021-03-10 08:00] VITALS: BP 128/68
[2021-03-10] MEDS: POLYETHYLENE GLYCOL 3350 (17GM) 1 DOSE PACK PO SCH (09:00)
[2021-03-10] MEDS: SENNOSIDES 8.6MG TABLET PO SCH ×3 (09:00→17:00)
[2021-03-10] MEDS: METOPROLOL TARTRATE 25MG TABLET PO SCH ×2 (09:00→21:00)
[2021-03-10] MEDS: HYDRALAZINE HCL 50MG TABLET PO SCH (09:33)
[2021-03-10] MEDS: CALCIUM ACETATE 667MG CAPSULE PO SCH ×3 (09:34→18:06)
[2021-03-10] MEDS: QUETIAPINE FUMARATE 50MG TABLET PO SCH (09:36)
[2021-03-10] MEDS: AMLODIPINE 10MG TABLET PO SCH ×2 (09:36→21:00)
[2021-03-10] MEDS: ENOXAPARIN 30MG/0.3ML SYR SUBCUT SCH (09:37)
[2021-03-10 12:00] VITALS: BP 83/40
[2021-03-10 16:00] VITALS: BP 101/53
[2021-03-10] MEDS: CEFTAZIDIME PENTAHYDRATE 1 G in DEXTROSE 5% WATER 50 ML IV SCH (18:07)
[2021-03-10 18:31] LABS: EOSINOPHILS % 3.7 % (0.0-5.0); HEMATOCRIT. 32.8 % (42.0-52.0); HEMOGLOBIN. 10.3 g/dL (14.0-18.0); LYMPHOCYTES % 20.3 % (20.0-50.0); MEAN CORPUSCULAR HEMOGLOBIN 28.8 pg (28.0-32.0); MEAN CORPUSCULAR VOLUME 91.2 fL (80.0-94.0); MEAN PLATELET VOLUME 7.1 fl (7.4-10.4); PLATELET 421 x1000/uL (130-400); RED CELL DISTRIBUTION WIDTH 15.4 % (11.6-14.6)
[2021-03-10 18:49] LABS: CHLORIDE 107 mEq/L (98-107)
[2021-03-10 18:56] LABS: PHOSPHORUS 5.6 mg/dL (2.5-4.9)
[2021-03-10 19:14] LABS: HEPATITIS B SURFACE ANTIGEN NEGATIVE
[2021-03-10 19:44] LABS: HEPATITIS A AB IGM NEGATIVE (NEGATIVE)
[2021-03-10 20:00] VITALS: BP 104/43
[2021-03-10] MEDS ORDERED: QUETIAPINE FUMARATE 25MG TABLET PO SCH (21:00)
[2021-03-11] VITALS (9 sets, daily range): BP systolic 103–147; BP diastolic 56–75
[2021-03-11] MEDS: POLYVINYL ALCOHOL OPHTH DROPS 15ML BOTHEYE SCH ×5 (05:07→23:44)
[2021-03-11 08:48] LABS: BASOPHILS % 1.5 % (0.0-2.0); EOSINOPHILS % 4.7 % (0.0-5.0); HEMATOCRIT. 30.7 % (42.0-52.0); HEMOGLOBIN. 9.9 g/dL (14.0-18.0); LYMPHOCYTES % 24.4 % (20.0-50.0); MEAN CORPUSCULAR HEMOGLOBIN 28.9 pg (28.0-32.0); MEAN CORPUSCULAR VOLUME 89.2 fL (80.0-94.0); MEAN PLATELET VOLUME 6.7 fl (7.4-10.4); MONOCYTES % 8.9 % (2.0-8.0); NEUTROPHILS % 60.5 % (40.0-76.0); PLATELET 394 x1000/uL (130-400); RED BLOOD CELL COUNT 3.44 mill/uL (4.7-6.1); RED CELL DISTRIBUTION WIDTH 15.6 % (11.6-14.6)
[2021-03-11 08:54] LABS: CHLORIDE 106 mEq/L (98-107)
[2021-03-11 09:01] LABS: PHOSPHORUS 6.2 mg/dL (2.5-4.9)
[2021-03-11] MEDS: POLYETHYLENE GLYCOL 3350 (17GM) 1 DOSE PACK PO SCH (10:34)
[2021-03-11] MEDS: ENOXAPARIN 30MG/0.3ML SYR SUBCUT SCH (10:34)
[2021-03-11] MEDS: SENNOSIDES 8.6MG TABLET PO SCH ×2 (10:35→19:19)
[2021-03-11] MEDS: AMLODIPINE 10MG TABLET PO SCH ×2 (10:36→20:50)
[2021-03-11] MEDS: METOPROLOL TARTRATE 25MG TABLET PO SCH ×2 (10:36→20:50)
[2021-03-11] MEDS ORDERED: LIDOCAINE HCL 1% 20ML VIAL (Pyxis) INJ ONE (13:08)
[2021-03-11] MEDS: CALCIUM ACETATE 667MG CAPSULE PO SCH ×2 (14:22→19:19)
[2021-03-11 17:23] LABS: INR 1.1; PROTHROMBIN TIME 11.4 sec (9.6-11.0)
[2021-03-11] MEDS ORDERED: HEPARIN SODIUM 1,000 UNIT/1ML VIAL IV NR (19:15)
[2021-03-11] MEDS: CEFTAZIDIME PENTAHYDRATE 1 G in DEXTROSE 5% WATER 50 ML IV SCH (19:20)
[2021-03-11] MEDS ORDERED: QUETIAPINE FUMARATE 25MG TABLET PO SCH (21:00)
[2021-03-11] MEDS: HALOPERIDOL LACTATE 5MG/ML VIAL IM PRN (21:10)
[2021-03-11] MEDS ORDERED: ACETAMINOPHEN 500MG TABLET PO PRN (21:30)
[2021-03-11] MEDS ORDERED: HYDROCODONE/ACETAMINOPHEN 5/325MG TABLET PO SCH (22:00)
[2021-03-12] VITALS: BP 141/71
[2021-03-12 04:00] VITALS: BP 155/78
[2021-03-12] MEDS: POLYVINYL ALCOHOL OPHTH DROPS 15ML BOTHEYE SCH ×2 (05:42→12:50)
[2021-03-12 08:00] VITALS: BP 145/82
[2021-03-12 08:37] LABS: BASOPHILS % 1.6 % (0.0-2.0); EOSINOPHILS % 5.2 % (0.0-5.0); HEMATOCRIT. 31.4 % (42.0-52.0); HEMOGLOBIN. 10.1 g/dL (14.0-18.0); LYMPHOCYTES % 22.9 % (20.0-50.0); MEAN CORPUSCULAR HEMOGLOBIN 28.6 pg (28.0-32.0); MEAN CORPUSCULAR VOLUME 89.2 fL (80.0-94.0); MEAN PLATELET VOLUME 7.1 fl (7.4-10.4); MONOCYTES % 8.2 % (2.0-8.0); NEUTROPHILS % 62.1 % (40.0-76.0); PLATELET 353 x1000/uL (130-400); RED BLOOD CELL COUNT 3.53 mill/uL (4.7-6.1); RED CELL DISTRIBUTION WIDTH 15.1 % (11.6-14.6)
[2021-03-12 08:41] LABS: CHLORIDE 104 mEq/L (98-107)
[2021-03-12 08:52] LABS: PHOSPHORUS 5.2 mg/dL (2.5-4.9)
[2021-03-12] MEDS: POLYETHYLENE GLYCOL 3350 (17GM) 1 DOSE PACK PO SCH (09:00)
[2021-03-12] MEDS: METOPROLOL TARTRATE 25MG TABLET PO SCH (09:28)
[2021-03-12] MEDS: AMLODIPINE 10MG TABLET PO SCH (09:29)
[2021-03-12] MEDS: SENNOSIDES 8.6MG TABLET PO SCH (09:29)
[2021-03-12] MEDS ORDERED: DIPHENHYDRAMINE 25MG CAPSULE PO PRN (09:45)
[2021-03-12] MEDS: CALCIUM ACETATE 667MG CAPSULE PO SCH ×2 (10:20→12:50)
[2021-03-12 12:00] VITALS: BP 137/76
[2021-03-12] MEDS ORDERED: QUET25TA PO (12:49)
[2021-03-12 13:00] VITALS: BP 145/82
== END 2021-03-12 13:48 | disposition home or self-care (01) | DRG 721 ==
LOC: ER 20:49 → MICUSO 02-28 01:15 → EDBEDREQ 02-28 01:23 → EDBEDREQTM 02-28 01:23 → SUPCPDRO 02-28 02:02 → 7WST 02-28 07:15 → 6WST 02-28 07:24 → 6EST 03-03 07:48
PROVIDERS: ADMIT Internal Medicine; ATTEND Internal Medicine
PROC: 5A1D70Z Performance of Urinary Filtration, Intermittent, Less than 6 Hours Per Day (ICD-10-PCS; 2021-02-28)
PROC: 5A1D70Z Performance of Urinary Filtration, Intermittent, Less than 6 Hours Per Day (ICD-10-PCS; 2021-03-01)
PROC: 0JPT3XZ Removal of Tunneled Vascular Access Device from Trunk Subcutaneous Tissue and Fascia, Percutaneous Approach (ICD-10-PCS; principal; 2021-03-02)
PROC: 0JBP0ZZ Excision of Left Lower Leg Subcutaneous Tissue and Fascia, Open Approach (ICD-10-PCS; 2021-03-04)
PROC: 0JBN0ZZ Excision of Right Lower Leg Subcutaneous Tissue and Fascia, Open Approach (ICD-10-PCS; 2021-03-04)
PROC: B5181ZA Fluoroscopy of Superior Vena Cava using Low Osmolar Contrast, Guidance (ICD-10-PCS; 2021-03-05)
PROC: 02HV33Z Insertion of Infusion Device into Superior Vena Cava, Percutaneous Approach (ICD-10-PCS; 2021-03-05)
PROC: B548ZZA Ultrasonography of Superior Vena Cava, Guidance (ICD-10-PCS; 2021-03-05)
PROC: 5A1D70Z Performance of Urinary Filtration, Intermittent, Less than 6 Hours Per Day (ICD-10-PCS; 2021-03-06)
PROC: 5A1D70Z Performance of Urinary Filtration, Intermittent, Less than 6 Hours Per Day (ICD-10-PCS; 2021-03-07)
PROC: 4A10X4Z Monitoring of Central Nervous Electrical Activity, External Approach (ICD-10-PCS; 2021-03-08)
PROC: 5A1D70Z Performance of Urinary Filtration, Intermittent, Less than 6 Hours Per Day (ICD-10-PCS; 2021-03-09)
PROC: 02PYX3Z Removal of Infusion Device from Great Vessel, External Approach (ICD-10-PCS; 2021-03-11)
PROC: 02HV33Z Insertion of Infusion Device into Superior Vena Cava, Percutaneous Approach (ICD-10-PCS; 2021-03-11)
PROC: 0JH63XZ Insertion of Tunneled Vascular Access Device into Chest Subcutaneous Tissue and Fascia, Percutaneous Approach (ICD-10-PCS; 2021-03-11)
PROC: B5181ZA Fluoroscopy of Superior Vena Cava using Low Osmolar Contrast, Guidance (ICD-10-PCS; 2021-03-11)
PROC: 5A1D70Z Performance of Urinary Filtration, Intermittent, Less than 6 Hours Per Day (ICD-10-PCS; 2021-03-11)
DX: T80.211A Bloodstream infection due to central venous catheter, initial encounter (principal); A41.52 Sepsis due to Pseudomonas; G92 Toxic encephalopathy; E11.319 Type 2 diabetes mellitus with unspecified diabetic retinopathy without macular edema; E87.1 Hypo-osmolality and hyponatremia; D63.1 Anemia in chronic kidney disease; E83.39 Other disorders of phosphorus metabolism; I12.0 Hypertensive chronic kidney disease with stage 5 chronic kidney disease or end stage renal disease; E11.22 Type 2 diabetes mellitus with diabetic chronic kidney disease; N18.6 End stage renal disease; D63.0 Anemia in neoplastic disease; E11.40 Type 2 diabetes mellitus with diabetic neuropathy, unspecified; E11.51 Type 2 diabetes mellitus with diabetic peripheral angiopathy without gangrene; E87.5 Hyperkalemia; E78.5 Hyperlipidemia, unspecified; J44.9 Chronic obstructive pulmonary disease, unspecified; M86.8X9 Other osteomyelitis, unspecified sites; Y84.8 Other medical procedures as the cause of abnormal reaction of the patient, or of later complication, without mention of misadventure at the time of the procedure; G54.6 Phantom limb syndrome with pain; F23 Brief psychotic disorder; T87.89 Other complications of amputation stump; Y83.5 Amputation of limb(s) as the cause of abnormal reaction of the patient, or of later complication, without mention of misadventure at the time of the procedure; G25.3 Myoclonus; Z20.822 Contact with and (suspected) exposure to COVID-19; Z99.2 Dependence on renal dialysis; Z89.512 Acquired absence of left leg below knee; Z89.511 Acquired absence of right leg below knee; Z87.891 Personal history of nicotine dependence; Z90.5 Acquired absence of kidney; Z88.5 Allergy status to narcotic agent; Z85.528 Personal history of other malignant neoplasm of kidney; Y92.89 Other specified places as the place of occurrence of the external cause; Z82.49 Family history of ischemic heart disease and other diseases of the circulatory system; Z83.3 Family history of diabetes mellitus; Z56.0 Unemployment, unspecified
CPT/HCPCS: 36415; 36556; 36558; 36589; 71045; 72192; 73700; 74176; 76937; 77001; 80048; 80053; 80202; 82140; 82962; 83605; 83735; 84100; 84145; 85025; 86705; 86709; 86803; 86850; 86900; 87077; 87186; 87340; 87426; 92610; 93005; 93923; 95816; 99285; C1750; C1752; C1769; J0360; J0692; J0713; J0885; J1630; J1642; J1644; J1650; J2405; J2997; J3010; J3370; J3490; J7040; J7060; Q0163; U0003; U0005

== ENCOUNTER 2022-03-21 16:50 | Inpatient (IN) | payer MEDICAID ==
[~2022-03-21] VITALS: Ht 177.8 cm; Wt 78.0 kg
[~2022-03-21 16:50] MED LIST changes: +DIPH25TA26 PO; +EPOE40009 SUBCUT; +FERR325T6 PO; +HYDR-4001 MT; +HYDR-4001 PO; -HYDR-4009 MT; +ONDA4TAB11 PO; +ONDA4TAB5 PO; -OXYC1TAB21 PO; +POLY17PO3 PO; +QUET25TA PO
[2022-03-21 19:10] LABS: BASOPHILS % 1.2 % (0.0-2.0); EOSINOPHILS % 8.3 % (0.0-5.0); LYMPHOCYTES % 16.5 % (20.0-50.0); MEAN CORPUSCULAR HEMOGLOBIN 26.5 pg (28.0-32.0); MEAN CORPUSCULAR VOLUME 83.5 fL (80.0-94.0); MEAN PLATELET VOLUME 8.4 fl (7.4-10.4); MONOCYTES % 8.7 % (2.0-8.0); NEUTROPHILS % 65.3 % (40.0-76.0); PLATELET 199 x1000/uL (130-400); RED BLOOD CELL COUNT 4.91 mill/uL (4.7-6.1); RED CELL DISTRIBUTION WIDTH 16.9 % (11.6-14.6)
[2022-03-21 19:20] LABS: PROTHROMBIN TIME 10.3 sec (9.6-11.0)
[2022-03-21 19:21] LABS: CHLORIDE 102 mEq/L (98-107)
[2022-03-21] MEDS ORDERED: CALCIUM GLUCONATE 100MG/ML 10ML VIAL IV ONE (21:15)
[2022-03-21] MEDS ORDERED: DEXTROSE 50% WATER 50ML SYRINGE IV ONE (21:15)
[2022-03-21] MEDS ORDERED: ALBUTEROL (0.083%) 2.5MG/3ML NEB HHN ONE (21:15)
[2022-03-21] MEDS ORDERED: SODIUM POLYSTYRENE SULFONATE 15 G/60 ML BOT PO ONE (21:15)
[2022-03-21] MEDS ORDERED: INSULIN REGULAR (HUMULIN R) 300UNITS/3ML VIAL IV ONE (21:15)
[2022-03-21] MEDS ORDERED: INSULIN REGULAR (HUMULIN R) 300UNITS/3ML VIAL IV NR (23:45)
[2022-03-21] MEDS ORDERED: SODIUM POLYSTYRENE SULFONATE 15 G/60 ML BOT PO NR (23:45)
[2022-03-21] MEDS ORDERED: DEXTROSE 50% WATER 50ML SYRINGE IV NR (23:45)
[2022-03-22] MEDS ORDERED: MORPHINE SULFATE 4 MG/ML CPJ (NOT FOR IM USE) IV ONE (00:30)
[2022-03-22] MEDS ORDERED: MAGNESIUM/ALUMINUM HYDROXIDE/SIMETHICONE 30ML UDC PO PRN (03:00)
[2022-03-22] MEDS ORDERED: IPRATROPIUM/ALBUTEROL 0.5-3(2.5)MG/3ML NEB HHN PRN (03:00)
[2022-03-22] MEDS ORDERED: GUAIFENESIN 200MG/10ML SUGAR FREE UDC PO PRN (03:00)
[2022-03-22] MEDS ORDERED: ACETAMINOPHEN 325MG TABLET PO PRN ×2 (03:00)
[2022-03-22] MEDS ORDERED: MORPHINE SULFATE 2 MG/ML CPJ (NOT FOR IM USE) IV PRN (03:00)
[2022-03-22] MEDS ORDERED: HYDROCODONE/ACETAMINOPHEN 5/325MG TABLET PO PRN (03:00)
[2022-03-22] MEDS ORDERED: DOCUSATE SODIUM 100MG CAPSULE PO PRN (03:00)
[2022-03-22] MEDS ORDERED: CLONIDINE 0.1MG TABLET PO PRN (03:00)
[2022-03-22] MEDS ORDERED: ACETAMINOPHEN 650MG SUPP PR PRN ×2 (03:00)
[2022-03-22] MEDS ORDERED: ONDANSETRON HCL 4MG/2ML INJ IV PRN (03:00)
[2022-03-22] MEDS ORDERED: FURO-151 PO (04:37)
[2022-03-22 05:21] VITALS: BP 107/66
[2022-03-22] MEDS ORDERED: *PATIENT'S OWN MEDICATION STORAGE XX SCH (06:15)
[2022-03-22 08:00] VITALS: BP 112/64
[2022-03-22] MEDS: ENOXAPARIN 30MG/0.3ML SYR SUBCUT SCH (09:00)
[2022-03-22 10:07] LABS: BASOPHILS % 0.4 % (0.0-2.0); EOSINOPHILS % 0.1 % (0.0-5.0); HEMATOCRIT. 39.3 % (42.0-52.0); HEMOGLOBIN. 12.3 g/dL (14.0-18.0); LYMPHOCYTES % 8.7 % (20.0-50.0); MEAN CORPUSCULAR HEMOGLOBIN 26.4 pg (28.0-32.0); MEAN CORPUSCULAR VOLUME 84.7 fL (80.0-94.0); MEAN PLATELET VOLUME 8.2 fl (7.4-10.4); MONOCYTES % 5.3 % (2.0-8.0); NEUTROPHILS % 85.5 % (40.0-76.0); PLATELET 191 x1000/uL (130-400); RED BLOOD CELL COUNT 4.64 mill/uL (4.7-6.1); RED CELL DISTRIBUTION WIDTH 17.3 % (11.6-14.6)
[2022-03-22] MEDS ORDERED: CEFAZOLIN 1000MG PREMIX 50 ML IV NR (10:15)
[2022-03-22 10:16] LABS: CHLORIDE 99 mEq/L (98-107)
[2022-03-22 10:33] LABS: CREATINE KINASE 268 IU/L (39-308); HDL CHOLESTEROL 54 mg/dL (40-59); LDL CHOLESTEROL 54 mg/dL (5-100)
[2022-03-22] MEDS ORDERED: LIDOCAINE HCL/PF 1% 10 MG/ML 5ML VIAL ONE (11:47)
[2022-03-22 12:00] VITALS: BP 147/75
[2022-03-22] MEDS ORDERED: NALOXONE HCL 0.4MG/ML VIAL IV PRN (13:15)
[2022-03-22 13:51] LABS: HEPATITIS B SURFACE ANTIGEN NEGATIVE
[2022-03-22 16:00] VITALS: BP 121/80
[2022-03-22] MEDS ORDERED: DEXTROSE 50% WATER 50ML SYRINGE IV PRN (19:45)
[2022-03-22 20:00] VITALS: BP 224/103
[2022-03-22] MEDS: BLOOD SUGAR DIAGNOSTIC STRIP TEST SCH (20:39)
[2022-03-22] MEDS: HYDRALAZINE HCL 25MG TABLET PO SCH (20:40)
[2022-03-22] MEDS: QUETIAPINE FUMARATE 25MG TABLET PO SCH (20:40)
[2022-03-22] MEDS: INSULIN LISPRO 100 UNITS/ML SUBCUT SCH (20:41)
[2022-03-22] MEDS ORDERED: HYDR-4134 PO (20:49)
[2022-03-22] MEDS ORDERED: FERR325T6 PO (20:50)
[2022-03-22] MEDS ORDERED: AMLO10TA80 PO (20:52)
[2022-03-22] MEDS ORDERED: PRAV20TA57 PO (20:53)
[2022-03-22] MEDS ORDERED: CALC667T2 PO (20:55)
[2022-03-22] MEDS ORDERED: AMIT25TA9 PO (20:57)
[2022-03-22] MEDS ORDERED: GABA-532 PO (20:58)
[2022-03-22] MEDS ORDERED: CALCIUM ACETATE 667MG CAPSULE PO SCH (21:00)
[2022-03-22] MEDS: CALCIUM ACETATE 667MG CAPSULE PO SCH (22:07)
[2022-03-22] MEDS ORDERED: HYDRALAZINE 20MG/ML VIAL IV PRN (22:15)
[2022-03-22] MEDS: AMLODIPINE 10MG TABLET PO SCH (22:40)
[2022-03-22] MEDS: POLYVINYL ALCOHOL OPHTH DROPS 15ML BOTHEYE PRN (22:40)
[2022-03-23] VITALS: BP 186/95
[2022-03-23 04:00] VITALS: BP 107/56
[2022-03-23] MEDS: BLOOD SUGAR DIAGNOSTIC STRIP TEST SCH ×3 (06:37→17:20)
[2022-03-23 07:42] LABS: BASOPHILS % 0.9 % (0.0-2.0); EOSINOPHILS % 6.8 % (0.0-5.0); HEMATOCRIT. 38.1 % (42.0-52.0); HEMOGLOBIN. 12.1 g/dL (14.0-18.0); LYMPHOCYTES % 18.4 % (20.0-50.0); MEAN CORPUSCULAR HEMOGLOBIN 26.5 pg (28.0-32.0); MEAN CORPUSCULAR VOLUME 83.5 fL (80.0-94.0); MEAN PLATELET VOLUME 8.4 fl (7.4-10.4); MONOCYTES % 9.8 % (2.0-8.0); NEUTROPHILS % 64.1 % (40.0-76.0); PLATELET 182 x1000/uL (130-400); RED BLOOD CELL COUNT 4.56 mill/uL (4.7-6.1); RED CELL DISTRIBUTION WIDTH 16.8 % (11.6-14.6)
[2022-03-23] MEDS: INSULIN LISPRO 100 UNITS/ML SUBCUT SCH ×3 (07:50→17:43)
[2022-03-23 08:00] VITALS: BP 119/62
[2022-03-23 08:10] LABS: PHOSPHORUS 5.2 mg/dL (2.5-4.9)
[2022-03-23] MEDS: CALCIUM ACETATE 667MG CAPSULE PO SCH ×2 (08:21→17:42)
[2022-03-23] MEDS: FERROUS SULFATE 325MG TABLET PO SCH ×3 (08:26→17:43)
[2022-03-23] MEDS: AMLODIPINE 10MG TABLET PO SCH (08:26)
[2022-03-23] MEDS ORDERED: ASPIRIN 81MG TABLET PO SCH (09:00)
[2022-03-23] MEDS ORDERED: ATORVASTATIN CALCIUM 10MG TABLET PO SCH (09:00)
[2022-03-23] MEDS ORDERED: FUROSEMIDE 40MG TABLET PO SCH (09:00)
[2022-03-23] MEDS: HYDRALAZINE HCL 25MG TABLET PO SCH (09:00)
[2022-03-23] MEDS: ENOXAPARIN 30MG/0.3ML SYR SUBCUT SCH (09:34)
[2022-03-23] MEDS: QUETIAPINE FUMARATE 25MG TABLET PO SCH (09:35)
[2022-03-23] MEDS: POLYVINYL ALCOHOL OPHTH DROPS 15ML BOTHEYE PRN (09:40)
[2022-03-23 12:00] VITALS: BP 123/61
[2022-03-23 16:00] VITALS: BP 119/72
[2022-03-23 18:24] VITALS: BP 127/71
== END 2022-03-23 19:02 | disposition home or self-care (01) | DRG 466 ==
LOC: ER 16:50 → MICUSO 03-22 00:10 → ENRESERV 03-22 02:23 → 6WST 03-22 03:37
PROVIDERS: ADMIT Specialist; ATTEND Specialist
PROC: 5A1D70Z Performance of Urinary Filtration, Intermittent, Less than 6 Hours Per Day (ICD-10-PCS; principal; 2022-03-22)
DX: T82.41XA Breakdown (mechanical) of vascular dialysis catheter, initial encounter (principal); I12.0 Hypertensive chronic kidney disease with stage 5 chronic kidney disease or end stage renal disease; I21.4 Non-ST elevation (NSTEMI) myocardial infarction; E87.2 Acidosis; N17.9 Acute kidney failure, unspecified; E87.1 Hypo-osmolality and hyponatremia; N18.6 End stage renal disease; I31.3 Pericardial effusion (noninflammatory); E11.22 Type 2 diabetes mellitus with diabetic chronic kidney disease; D64.9 Anemia, unspecified; E11.51 Type 2 diabetes mellitus with diabetic peripheral angiopathy without gangrene; E21.1 Secondary hyperparathyroidism, not elsewhere classified; E87.5 Hyperkalemia; E87.70 Fluid overload, unspecified; J44.9 Chronic obstructive pulmonary disease, unspecified; E78.5 Hyperlipidemia, unspecified; I25.10 Atherosclerotic heart disease of native coronary artery without angina pectoris; Y83.8 Other surgical procedures as the cause of abnormal reaction of the patient, or of later complication, without mention of misadventure at the time of the procedure; Y71.2 Prosthetic and other implants, materials and accessory cardiovascular devices associated with adverse incidents; Z20.822 Contact with and (suspected) exposure to COVID-19; M25.462 Effusion, left knee; R00.1 Bradycardia, unspecified; Z85.528 Personal history of other malignant neoplasm of kidney; Z99.2 Dependence on renal dialysis; Z89.512 Acquired absence of left leg below knee; Z89.511 Acquired absence of right leg below knee; Z88.8 Allergy status to other drugs, medicaments and biological substances; Z79.891 Long term (current) use of opiate analgesic; Z79.899 Other long term (current) drug therapy; Z79.82 Long term (current) use of aspirin; Z79.4 Long term (current) use of insulin; Z83.3 Family history of diabetes mellitus; Z82.49 Family history of ischemic heart disease and other diseases of the circulatory system; Y92.89 Other specified places as the place of occurrence of the external cause; Z87.891 Personal history of nicotine dependence; Z82.3 Family history of stroke
CPT/HCPCS: 36415; 71045; 80048; 80053; 80061; 82550; 82962; 83036; 83735; 84100; 84443; 84484; 85025; 86705; 86709; 86803; 86850; 86900; 87340; 87426; 93005; 93306; 94644; 97162; 97166; 99285; J0360; J0610; J0690; J1650; J2270; J2405; J3490

== ENCOUNTER 2022-04-24 17:19 | Inpatient (IN) | payer MEDICAID ==
[~2022-04-24] VITALS: Ht 177.8 cm; Wt 80.7 kg
[~2022-04-24 17:19] MED LIST changes: +AMIT25TA9 PO; +AMLO10TA80 PO; -AMLO2.5T45 PO; -CALC667C MT; +CALC667T2 PO; -DIPH25TA26 PO; +FURO-151 PO; +GABA-532 PO; -HYDR-4134 MT; +HYDR-4134 PO; -ONDA4TAB11 PO; -ONDA4TAB5 PO; -PRAV20TA57 MT; +PRAV20TA57 PO
[2022-04-24] MEDS ORDERED: MORPHINE SULFATE 4 MG/ML CPJ (NOT FOR IM USE) IV ONE (18:15)
[2022-04-24 19:08] LABS: BASOPHILS % 0.3 % (0.0-2.0); EOSINOPHILS % 2.3 % (0.0-5.0); HEMATOCRIT. 31.4 % (42.0-52.0); HEMOGLOBIN. 10.1 g/dL (14.0-18.0); MEAN CORPUSCULAR HEMOGLOBIN 26.3 pg (28.0-32.0); MEAN CORPUSCULAR VOLUME 81.8 fL (80.0-94.0); MEAN PLATELET VOLUME 8.1 fl (7.4-10.4); MONOCYTES % 5.9 % (2.0-8.0); NEUTROPHILS % 83.5 % (40.0-76.0); PLATELET 192 x1000/uL (130-400); RED BLOOD CELL COUNT 3.84 mill/uL (4.7-6.1); RED CELL DISTRIBUTION WIDTH 16.9 % (11.6-14.6)
[2022-04-24 19:30] LABS: PROTHROMBIN TIME 10.6 sec (9.6-11.0)
[2022-04-24] MEDS ORDERED: PIPERACILLIN/TAZ 3.375G PREMIX 50 ML IV ONE (20:00)
[2022-04-24 20:15] LABS: CHLORIDE 97 mEq/L (98-107)
[2022-04-24] MEDS ORDERED: VANCOMYCIN 1G PREMIX 200 ML IV NR (20:50)
[2022-04-24] MEDS ORDERED: MAGNESIUM/ALUMINUM HYDROXIDE/SIMETHICONE 30ML UDC PO PRN (21:00)
[2022-04-24] MEDS ORDERED: GUAIFENESIN 200MG/10ML SUGAR FREE UDC PO PRN (21:00)
[2022-04-24] MEDS ORDERED: DEXTROSE 50% WATER 50ML SYRINGE IV PRN (21:00)
[2022-04-24] MEDS ORDERED: ZOLPIDEM TARTRATE 5MG TABLET PO PRN (21:00)
[2022-04-24] MEDS ORDERED: ACETAMINOPHEN 325MG TABLET PO PRN ×2 (21:00)
[2022-04-24] MEDS ORDERED: ONDANSETRON HCL 4MG/2ML INJ IV PRN (21:00)
[2022-04-24] MEDS ORDERED: PIPERACILLIN/TAZ 3.375G PREMIX 50 ML IV SCH (21:00)
[2022-04-24] MEDS ORDERED: DOCUSATE SODIUM 100MG CAPSULE PO PRN (21:00)
[2022-04-24] MEDS: INSULIN LISPRO 100 UNITS/ML SUBCUT SCH (21:00)
[2022-04-24] MEDS ORDERED: NITROGLYCERIN 0.4MG TABLET SL SL PRN (21:00)
[2022-04-24] MEDS ORDERED: IPRATROPIUM/ALBUTEROL 0.5-3(2.5)MG/3ML NEB NEB PRN (21:00)
[2022-04-24] MEDS: ATORVASTATIN CALCIUM 10MG TABLET PO SCH (21:40)
[2022-04-24] MEDS: FAMOTIDINE 20MG TABLET PO SCH (21:41)
[2022-04-24] MEDS: BLOOD SUGAR DIAGNOSTIC STRIP TEST SCH (21:41)
[2022-04-24] MEDS: ENOXAPARIN 30MG/0.3ML SYR SUBCUT SCH (21:45)
[2022-04-24] MEDS ORDERED: NITROGLYCERIN OINT 1GM/INCH UDPKT TD SCH (22:00)
[2022-04-24] MEDS: GABAPENTIN 300MG CAPSULE PO SCH (22:00)
[2022-04-24 22:20] LABS: VITAMIN B12 SERUM 595 pg/mL (211-911)
[2022-04-25] MEDS ORDERED: NITROGLYCERIN OINT 1GM/INCH UDPKT TD PRN
[2022-04-25 00:38] LABS: CREATINE KINASE 118 IU/L (39-308); CREATINE KINASE MB FRACTION 2.4 ng/mL (0.5-3.6); ETHANOL BLOOD < 10 mg/dL
[2022-04-25] MEDS ORDERED: *PATIENT'S OWN MEDICATION STORAGE XX SCH (03:00)
[2022-04-25 04:00] VITALS: BP 147/77
[2022-04-25 04:01] VITALS: BP 155/52
[2022-04-25] MEDS: GABAPENTIN 300MG CAPSULE PO SCH ×3 (04:45→20:29)
[2022-04-25] MEDS: BLOOD SUGAR DIAGNOSTIC STRIP TEST SCH ×4 (04:58→19:59)
[2022-04-25] MEDS: INSULIN LISPRO 100 UNITS/ML SUBCUT SCH ×4 (05:31→21:01)
[2022-04-25 05:42] LABS: FOLIC ACID (FOLATE) SERUM > 20.00 ng/mL (>5.38)
[2022-04-25 07:10] LABS: BASOPHILS % 0.6 % (0.0-2.0); EOSINOPHILS % 4.5 % (0.0-5.0); HEMATOCRIT. 29.6 % (42.0-52.0); HEMOGLOBIN. 9.6 g/dL (14.0-18.0); LYMPHOCYTES % 13.9 % (20.0-50.0); MEAN CORPUSCULAR HEMOGLOBIN 26.7 pg (28.0-32.0); MEAN CORPUSCULAR VOLUME 82.2 fL (80.0-94.0); MEAN PLATELET VOLUME 8.3 fl (7.4-10.4); MONOCYTES % 8.4 % (2.0-8.0); NEUTROPHILS % 72.6 % (40.0-76.0); PLATELET 182 x1000/uL (130-400); RED BLOOD CELL COUNT 3.61 mill/uL (4.7-6.1); RED CELL DISTRIBUTION WIDTH 16.8 % (11.6-14.6)
[2022-04-25 07:56] LABS: CHLORIDE 98 mEq/L (98-107)
[2022-04-25 08:00] VITALS: BP 132/69
[2022-04-25 08:27] LABS: CREATINE KINASE 102 IU/L (39-308); CREATINE KINASE MB FRACTION 2.2 ng/mL (0.5-3.6)
[2022-04-25 08:49] LABS: PHOSPHORUS 8.5 mg/dL (2.5-4.9)
[2022-04-25] MEDS: SEVELAMER CARBONATE 800 MG TABLET PO SCH ×3 (08:53→17:47)
[2022-04-25] MEDS: ASPIRIN 325MG EC TABLET PO SCH (08:54)
[2022-04-25] MEDS: AMLODIPINE 10MG TABLET PO SCH (08:54)
[2022-04-25] MEDS: HYDROCODONE/ACETAMINOPHEN 5/325MG TABLET PO PRN ×3 (09:36→23:47)
[2022-04-25] MEDS ORDERED: METHYLPREDNISOLONE SOD SUCC 125 MG/2 ML VIAL IV NR (09:45)
[2022-04-25 12:00] VITALS: BP 146/84
[2022-04-25] MEDS: PIPERACILLIN/TAZOBACTAM 3.375 G in DEXTROSE 5% WATER 50 ML IV SCH ×2 (13:37→20:57)
[2022-04-25 16:00] VITALS: BP 194/89
[2022-04-25 16:15] LABS: HEPATITIS B SURFACE ANTIGEN NEGATIVE
[2022-04-25] MEDS: CLONIDINE 0.1MG TABLET PO PRN ×2 (17:47→23:48)
[2022-04-25 20:00] VITALS: BP 153/97
[2022-04-25] MEDS: FAMOTIDINE 20MG TABLET PO SCH (20:57)
[2022-04-25] MEDS: ATORVASTATIN CALCIUM 10MG TABLET PO SCH (20:57)
[2022-04-25] MEDS: ENOXAPARIN 30MG/0.3ML SYR SUBCUT SCH (20:59)
[2022-04-25] MEDS ORDERED: EPOETIN ALFA-EPBX 4,000 UNIT/ML VIAL SUBCUT SCH (21:00)
[2022-04-25] MEDS ORDERED: NALOXONE HCL 0.4MG/ML VIAL IV PRN (21:15)
[2022-04-26] VITALS: BP 184/83
[2022-04-26] MEDS: GABAPENTIN 300MG CAPSULE PO SCH ×2 (03:37→14:00)
[2022-04-26 04:00] VITALS: BP 157/93
[2022-04-26] MEDS: INSULIN LISPRO 100 UNITS/ML SUBCUT SCH ×2 (05:17→12:40)
[2022-04-26] MEDS: BLOOD SUGAR DIAGNOSTIC STRIP TEST SCH ×2 (05:17→12:10)
[2022-04-26 06:31] LABS: PHOSPHORUS 5.4 mg/dL (2.5-4.9)
[2022-04-26 06:48] LABS: HEMATOCRIT. 33.8 % (42.0-52.0); MEAN CORPUSCULAR HEMOGLOBIN 26.5 pg (28.0-32.0); MEAN CORPUSCULAR VOLUME 81.4 fL (80.0-94.0); MEAN PLATELET VOLUME 8.6 fl (7.4-10.4); PLATELET 226 x1000/uL (130-400); RED BLOOD CELL COUNT 4.15 mill/uL (4.7-6.1); RED CELL DISTRIBUTION WIDTH 16.4 % (11.6-14.6)
[2022-04-26 08:07] VITALS: BP 179/90
[2022-04-26] MEDS: PIPERACILLIN/TAZOBACTAM 3.375 G in DEXTROSE 5% WATER 50 ML IV SCH (08:18)
[2022-04-26] MEDS: ASPIRIN 325MG EC TABLET PO SCH (08:18)
[2022-04-26] MEDS: AMLODIPINE 10MG TABLET PO SCH (08:18)
[2022-04-26] MEDS: SEVELAMER CARBONATE 800 MG TABLET PO SCH ×2 (08:24→14:40)
[2022-04-26] MEDS ORDERED: BACITRACIN 15GM TUBE TOP SCH (09:00)
[2022-04-26 12:00] VITALS: BP 136/78
[2022-04-26 13:47] LABS: PLATELET ESTIMATE NORMAL
[2022-04-26] MEDS ORDERED: HYDROCODONE/ACETAMINOPHEN 5/325MG TABLET PO NR (14:15)
[2022-04-26 15:42] VITALS: BP 136/78
[2022-04-26] MEDS ORDERED: VANCOMYCIN 500MG PREMIX 100 ML IV SCH (16:00)
== END 2022-04-26 16:00 | disposition home or self-care (01) | DRG 349 ==
LOC: ER 17:19 → EDBEDREQTM 20:24 → EDBEDREQ 20:24 → MICUSO 23:26 → 8WST 04-25 01:42
PROVIDERS: ADMIT Internal Medicine; ATTEND Internal Medicine
DX: T87.43 Infection of amputation stump, right lower extremity (principal); E11.649 Type 2 diabetes mellitus with hypoglycemia without coma; I12.0 Hypertensive chronic kidney disease with stage 5 chronic kidney disease or end stage renal disease; L03.115 Cellulitis of right lower limb; D63.1 Anemia in chronic kidney disease; N18.6 End stage renal disease; S81.011A Laceration without foreign body, right knee, initial encounter; Z20.822 Contact with and (suspected) exposure to COVID-19; E11.22 Type 2 diabetes mellitus with diabetic chronic kidney disease; E78.5 Hyperlipidemia, unspecified; E87.5 Hyperkalemia; J44.9 Chronic obstructive pulmonary disease, unspecified; M19.90 Unspecified osteoarthritis, unspecified site; N25.81 Secondary hyperparathyroidism of renal origin; E11.51 Type 2 diabetes mellitus with diabetic peripheral angiopathy without gangrene; E11.69 Type 2 diabetes mellitus with other specified complication; Z99.2 Dependence on renal dialysis; Z91.15 Patient's noncompliance with renal dialysis; Z82.49 Family history of ischemic heart disease and other diseases of the circulatory system; Z83.3 Family history of diabetes mellitus; Z88.8 Allergy status to other drugs, medicaments and biological substances; Z89.512 Acquired absence of left leg below knee; Z56.0 Unemployment, unspecified; Z28.310 Unvaccinated for COVID-19; W18.30XA Fall on same level, unspecified, initial encounter; Y93.89 Activity, other specified; X58.XXXA Exposure to other specified factors, initial encounter; Y92.89 Other specified places as the place of occurrence of the external cause; Y99.8 Other external cause status; Y83.5 Amputation of limb(s) as the cause of abnormal reaction of the patient, or of later complication, without mention of misadventure at the time of the procedure
CPT/HCPCS: 36415; 71045; 73562; 80048; 80053; 80061; 80202; 80320; 82550; 82553; 82607; 82746; 82962; 83036; 83540; 83550; 83605; 83735; 84100; 84439; 84443; 84484; 85025; 85651; 86705; 86709; 86803; 87340; 87426; 93005; 93970; 97162; 97166; 99285; C1893; J0885; J1650; J1815; J2270; J2405; J2543; J2930; J3370; J7060; G0480

== ENCOUNTER 2022-06-24 16:43 | Inpatient (IN) | payer MEDICAID ==
[~2022-06-24] VITALS: Ht 167.6 cm; Wt 76.9 kg
[2022-06-24 20:11] LABS: BASOPHILS % 1.4 % (0.0-2.0); EOSINOPHILS % 7.7 % (0.0-5.0); HEMATOCRIT. 30.9 % (42.0-52.0); HEMOGLOBIN. 10.1 g/dL (14.0-18.0); LYMPHOCYTES % 15.3 % (20.0-50.0); MEAN CORPUSCULAR HEMOGLOBIN 28.1 pg (28.0-32.0); MEAN CORPUSCULAR VOLUME 85.6 fL (80.0-94.0); MEAN PLATELET VOLUME 8.1 fl (7.4-10.4); MONOCYTES % 7.3 % (2.0-8.0); NEUTROPHILS % 68.3 % (40.0-76.0); PLATELET 251 x1000/uL (130-400); RED BLOOD CELL COUNT 3.61 mill/uL (4.7-6.1); RED CELL DISTRIBUTION WIDTH 15.9 % (11.6-14.6)
[2022-06-24 20:17] LABS: CHLORIDE 100 mEq/L (98-107)
[2022-06-24 20:19] LABS: PROTHROMBIN TIME 11.2 sec (9.6-11.0)
[2022-06-24] MEDS ORDERED: DEXTROSE 50% WATER 50ML SYRINGE IV ONE (20:30)
[2022-06-24] MEDS ORDERED: SODIUM POLYSTYRENE SULFONATE 15 G/60 ML BOT PO ONE (20:30)
[2022-06-24] MEDS ORDERED: ALBUTEROL (0.083%) 2.5MG/3ML NEB HHN ONE (20:30)
[2022-06-24] MEDS ORDERED: INSULIN REGULAR (HUMULIN R) 300UNITS/3ML VIAL IV ONE (20:30)
[2022-06-24] MEDS ORDERED: CALCIUM GLUCONATE 1GM PREMIX 50 ML IV ONE ×2 (20:30)
[2022-06-24] MEDS ORDERED: SODIUM POLYSTYRENE SULFONATE 15 G/60 ML BOT PO NR (22:15)
[2022-06-24] MEDS ORDERED: INSULIN REGULAR (HUMULIN R) 300UNITS/3ML VIAL IV NR (22:15)
[2022-06-24] MEDS ORDERED: DEXTROSE 50% WATER 50ML SYRINGE IV NR (22:15)
[2022-06-24] MEDS ORDERED: ALBUTEROL (0.083%) 2.5MG/3ML NEB ONE (23:28)
[2022-06-24] MEDS ORDERED: GUAIFENESIN 200MG/10ML SUGAR FREE UDC PO PRN (23:30)
[2022-06-24] MEDS ORDERED: ONDANSETRON HCL 4MG/2ML INJ IV PRN (23:30)
[2022-06-24] MEDS ORDERED: MAGNESIUM/ALUMINUM HYDROXIDE/SIMETHICONE 30ML UDC PO PRN (23:30)
[2022-06-24] MEDS ORDERED: CLONIDINE 0.1MG TABLET PO PRN (23:30)
[2022-06-24] MEDS ORDERED: IPRATROPIUM/ALBUTEROL 0.5-3(2.5)MG/3ML NEB NEB PRN (23:30)
[2022-06-24] MEDS ORDERED: ACETAMINOPHEN 325MG TABLET PO PRN ×2 (23:30)
[2022-06-24] MEDS ORDERED: NALOXONE HCL 0.4MG/ML VIAL IV PRN (23:45)
[2022-06-25] VITALS (13 sets, daily range): BP systolic 93–176; BP diastolic 38–91
[2022-06-25] MEDS ORDERED: ENOXAPARIN 30MG/0.3ML SYR SUBCUT SCH (09:00)
[2022-06-25] MEDS ORDERED: SODIUM POLYSTYRENE SULFONATE 15 G/60 ML BOT PO SCH (09:00)
[2022-06-25] MEDS ORDERED: ASPIRIN 81MG EC TABLET PO SCH (10:44)
[2022-06-25] MEDS: AMLODIPINE 10MG TABLET PO SCH (10:45)
[2022-06-25] MEDS: CALCIUM ACETATE 667MG CAPSULE PO SCH ×2 (15:02→17:24)
[2022-06-25] MEDS: HYDROCODONE/ACETAMINOPHEN 5/325MG TABLET PO PRN (15:02)
[2022-06-25] MEDS: FERROUS SULFATE 325MG TABLET PO SCH ×2 (15:03→17:24)
[2022-06-25] MEDS: GABAPENTIN 300MG CAPSULE PO SCH (17:00)
[2022-06-25] MEDS: FUROSEMIDE 40MG TABLET PO SCH (17:00)
[2022-06-25 18:05] LABS: BASOPHILS % 0.9 % (0.0-2.0); EOSINOPHILS % 2.6 % (0.0-5.0); HEMATOCRIT. 25.7 % (42.0-52.0); HEMOGLOBIN. 8.6 g/dL (14.0-18.0); LYMPHOCYTES % 9.9 % (20.0-50.0); MEAN CORPUSCULAR HEMOGLOBIN 28.3 pg (28.0-32.0); MEAN CORPUSCULAR VOLUME 84.3 fL (80.0-94.0); MEAN PLATELET VOLUME 8.2 fl (7.4-10.4); MONOCYTES % 5.6 % (2.0-8.0); PLATELET 219 x1000/uL (130-400); RED BLOOD CELL COUNT 3.05 mill/uL (4.7-6.1); RED CELL DISTRIBUTION WIDTH 16.1 % (11.6-14.6)
[2022-06-25 19:06] LABS: HEPATITIS B SURFACE ANTIGEN NEGATIVE
[2022-06-25] MEDS: QUETIAPINE FUMARATE 25MG TABLET PO SCH (20:44)
[2022-06-25] MEDS: HYDRALAZINE HCL 25MG TABLET PO SCH (20:44)
[2022-06-25] MEDS: AMITRIPTYLINE 25MG TABLET PO SCH (20:44)
[2022-06-25] MEDS: ATORVASTATIN CALCIUM 10MG TABLET PO SCH (20:46)
[2022-06-25] MEDS ORDERED: MEDICATION NOT ON FORMULARY EA (Pravastatin Sodium 20 MG) PO SCH (21:00)
[2022-06-26] VITALS (21 sets, daily range): BP systolic 107–166; BP diastolic 68–84
[2022-06-26 06:44] LABS: BASOPHILS % 1.4 % (0.0-2.0); HEMOGLOBIN. 9.3 g/dL (14.0-18.0); LYMPHOCYTES % 16.4 % (20.0-50.0); MEAN CORPUSCULAR HEMOGLOBIN 28.4 pg (28.0-32.0); MEAN CORPUSCULAR VOLUME 85.6 fL (80.0-94.0); MEAN PLATELET VOLUME 8.5 fl (7.4-10.4); MONOCYTES % 9.2 % (2.0-8.0); PLATELET 227 x1000/uL (130-400); RED BLOOD CELL COUNT 3.27 mill/uL (4.7-6.1); RED CELL DISTRIBUTION WIDTH 16.4 % (11.6-14.6)
[2022-06-26 07:59] LABS: CHLORIDE 107 mEq/L (98-107)
[2022-06-26 08:07] LABS: PHOSPHORUS 4.5 mg/dL (2.5-4.9)
[2022-06-26] MEDS: FISH OIL/OMEGA-3 FATTY ACIDS 1000MG CAPSULE PO SCH (08:55)
[2022-06-26] MEDS: HYDRALAZINE HCL 25MG TABLET PO SCH ×2 (08:56→21:48)
[2022-06-26] MEDS: CALCIUM ACETATE 667MG CAPSULE PO SCH ×3 (08:56→17:05)
[2022-06-26] MEDS: GABAPENTIN 300MG CAPSULE PO SCH ×2 (08:56→17:05)
[2022-06-26] MEDS: AMLODIPINE 10MG TABLET PO SCH (08:56)
[2022-06-26] MEDS: QUETIAPINE FUMARATE 25MG TABLET PO SCH ×2 (08:56→21:47)
[2022-06-26] MEDS: FERROUS SULFATE 325MG TABLET PO SCH ×3 (08:56→17:05)
[2022-06-26] MEDS: FUROSEMIDE 40MG TABLET PO SCH ×2 (08:57→17:05)
[2022-06-26] MEDS ORDERED: CEFAZOLIN 1000MG PREMIX 50 ML IV NR (09:00)
[2022-06-26] MEDS: HYDROCODONE/ACETAMINOPHEN 5/325MG TABLET PO PRN ×2 (09:18→21:57)
[2022-06-26] MEDS ORDERED: FENTANYL CITRATE/PF 50MCG/ML 2ML VIAL ONE (10:44)
[2022-06-26] MEDS ORDERED: HEPARIN 1000 UNITS/ML 10ML ONE (10:48)
[2022-06-26] MEDS ORDERED: LIDOCAINE HCL 1% 10 MG/ML 10ML VIAL ONE (10:48)
[2022-06-26] MEDS ORDERED: FENTANYL CITRATE/PF 50MCG/ML 2ML VIAL IV NR (12:00)
[2022-06-26] MEDS ORDERED: EPOETIN ALFA-EPBX 4,000 UNIT/ML VIAL SUBCUT SCH ×2 (21:00)
[2022-06-26] MEDS ORDERED: FAMOTIDINE 20MG TABLET PO SCH (21:00)
[2022-06-26] MEDS: ATORVASTATIN CALCIUM 10MG TABLET PO SCH (21:47)
[2022-06-26] MEDS: AMITRIPTYLINE 25MG TABLET PO SCH (21:47)
[2022-06-27] VITALS (12 sets, daily range): BP systolic 102–175; BP diastolic 59–99
[2022-06-27 06:29] LABS: BASOPHILS % 1.2 % (0.0-2.0); EOSINOPHILS % 10.7 % (0.0-5.0); HEMATOCRIT. 25.7 % (42.0-52.0); HEMOGLOBIN. 8.5 g/dL (14.0-18.0); LYMPHOCYTES % 15.5 % (20.0-50.0); MEAN CORPUSCULAR HEMOGLOBIN 28.5 pg (28.0-32.0); MEAN CORPUSCULAR VOLUME 85.6 fL (80.0-94.0); MEAN PLATELET VOLUME 8.3 fl (7.4-10.4); MONOCYTES % 7.5 % (2.0-8.0); NEUTROPHILS % 65.1 % (40.0-76.0); PLATELET 195 x1000/uL (130-400); RED CELL DISTRIBUTION WIDTH 16.6 % (11.6-14.6)
[2022-06-27 08:37] LABS: PHOSPHORUS 4.8 mg/dL (2.5-4.9)
[2022-06-27] MEDS: FUROSEMIDE 40MG TABLET PO SCH (09:00)
[2022-06-27] MEDS: HYDRALAZINE HCL 25MG TABLET PO SCH (09:00)
[2022-06-27] MEDS: AMLODIPINE 10MG TABLET PO SCH (09:00)
[2022-06-27] MEDS: QUETIAPINE FUMARATE 25MG TABLET PO SCH (09:07)
[2022-06-27] MEDS: GABAPENTIN 300MG CAPSULE PO SCH (09:07)
[2022-06-27] MEDS: FERROUS SULFATE 325MG TABLET PO SCH ×2 (09:07→12:20)
[2022-06-27] MEDS: HYDROCODONE/ACETAMINOPHEN 5/325MG TABLET PO PRN (09:07)
[2022-06-27] MEDS: CALCIUM ACETATE 667MG CAPSULE PO SCH ×2 (09:08→12:20)
[2022-06-27] MEDS: FISH OIL/OMEGA-3 FATTY ACIDS 1000MG CAPSULE PO SCH (09:08)
== END 2022-06-27 17:00 | disposition home or self-care (01) | DRG 466 ==
LOC: ER 16:43 → EDBEDREQTM 21:27 → EDBEDREQ 21:27 → 7WST 06-25 00:32 → MICUSO 06-25 01:00 → 3WST 06-25 11:39
PROVIDERS: ADMIT Internal Medicine; ATTEND Internal Medicine
PROC: 5A1D70Z Performance of Urinary Filtration, Intermittent, Less than 6 Hours Per Day (ICD-10-PCS; principal; 2022-06-25)
PROC: 05HY33Z Insertion of Infusion Device into Upper Vein, Percutaneous Approach (ICD-10-PCS; 2022-06-25)
PROC: B543ZZA Ultrasonography of Right Jugular Veins, Guidance (ICD-10-PCS; 2022-06-25)
PROC: 0JH63XZ Insertion of Tunneled Vascular Access Device into Chest Subcutaneous Tissue and Fascia, Percutaneous Approach (ICD-10-PCS; 2022-06-26)
PROC: 02HV33Z Insertion of Infusion Device into Superior Vena Cava, Percutaneous Approach (ICD-10-PCS; 2022-06-26)
PROC: B5181ZA Fluoroscopy of Superior Vena Cava using Low Osmolar Contrast, Guidance (ICD-10-PCS; 2022-06-26)
PROC: 06PYX3Z Removal of Infusion Device from Lower Vein, External Approach (ICD-10-PCS; 2022-06-26)
PROC: 5A1D70Z Performance of Urinary Filtration, Intermittent, Less than 6 Hours Per Day (ICD-10-PCS; 2022-06-27)
DX: T82.41XA Breakdown (mechanical) of vascular dialysis catheter, initial encounter (principal); I12.0 Hypertensive chronic kidney disease with stage 5 chronic kidney disease or end stage renal disease; J96.01 Acute respiratory failure with hypoxia; N18.6 End stage renal disease; E87.1 Hypo-osmolality and hyponatremia; D63.1 Anemia in chronic kidney disease; E87.5 Hyperkalemia; Z20.822 Contact with and (suspected) exposure to COVID-19; E87.70 Fluid overload, unspecified; E11.22 Type 2 diabetes mellitus with diabetic chronic kidney disease; N25.81 Secondary hyperparathyroidism of renal origin; E11.51 Type 2 diabetes mellitus with diabetic peripheral angiopathy without gangrene; E78.5 Hyperlipidemia, unspecified; J44.9 Chronic obstructive pulmonary disease, unspecified; Z89.519 Acquired absence of unspecified leg below knee; Z99.2 Dependence on renal dialysis; Z82.49 Family history of ischemic heart disease and other diseases of the circulatory system; Z85.528 Personal history of other malignant neoplasm of kidney; Z88.8 Allergy status to other drugs, medicaments and biological substances; Z83.3 Family history of diabetes mellitus; Z90.5 Acquired absence of kidney; Z91.15 Patient's noncompliance with renal dialysis; Y83.8 Other surgical procedures as the cause of abnormal reaction of the patient, or of later complication, without mention of misadventure at the time of the procedure; Y92.89 Other specified places as the place of occurrence of the external cause
CPT/HCPCS: 36415; 36556; 36558; 36589; 71045; 76937; 77001; 80048; 80053; 83735; 84100; 85025; 86705; 86709; 86803; 87340; 87426; 90935; 93005; 94644; 99152; 99153; 99291; C1750; C1752; C1769; J0610; J0690; J0885; J1644; J1650; J1815; J2405; J3010; J3490; G0500

== ENCOUNTER 2022-09-04 16:59 | Inpatient (IN) | payer MEDICAID ==
[~2022-09-04] VITALS: Ht 177.8 cm; Wt 70.3 kg
[~2022-09-04 16:59] MED LIST changes: -HYDR-4001 PO
[2022-09-04 19:43] LABS: EOSINOPHILS % 5.1 % (0.0-5.0); HEMATOCRIT. 34.7 % (42.0-52.0); HEMOGLOBIN. 11.4 g/dL (14.0-18.0); LYMPHOCYTES % 15.2 % (20.0-50.0); MEAN CORPUSCULAR HEMOGLOBIN 26.3 pg (28.0-32.0); MEAN CORPUSCULAR VOLUME 80.2 fL (80.0-94.0); MEAN PLATELET VOLUME 7.9 fl (7.4-10.4); NEUTROPHILS % 71.7 % (40.0-76.0); PLATELET 256 x1000/uL (130-400); RED BLOOD CELL COUNT 4.32 mill/uL (4.7-6.1); RED CELL DISTRIBUTION WIDTH 17.7 % (11.6-14.6)
[2022-09-04 19:49] LABS: CHLORIDE 98 mEq/L (98-107)
[2022-09-04] MEDS ORDERED: SODIUM BICARBONATE 8.4% 1 MEQ/ML 50ML SYR IV ONE (20:15)
[2022-09-04] MEDS ORDERED: SODIUM POLYSTYRENE SULFONATE 15 G/60 ML BOT PO ONE (20:15)
[2022-09-04] MEDS ORDERED: ALBUTEROL (0.083%) 2.5MG/3ML NEB HHN ONE (20:15)
[2022-09-04] MEDS ORDERED: LORAZEPAM 0.5MG TABLET PO PRN (23:15)
[2022-09-04] MEDS ORDERED: DOCUSATE SODIUM 100MG CAPSULE PO PRN (23:15)
[2022-09-04] MEDS ORDERED: IPRATROPIUM/ALBUTEROL 0.5-3(2.5)MG/3ML NEB HHN PRN (23:15)
[2022-09-04] MEDS ORDERED: ONDANSETRON HCL 4MG/2ML INJ IV PRN (23:15)
[2022-09-04] MEDS ORDERED: ACETAMINOPHEN 325MG TABLET PO PRN ×2 (23:15)
[2022-09-04] MEDS ORDERED: CLONIDINE 0.1MG TABLET PO PRN (23:15)
[2022-09-04] MEDS: HYDROCODONE/ACETAMINOPHEN 5/325MG TABLET PO PRN (23:40)
[2022-09-05] VITALS (28 sets, daily range): BP systolic 132–188; BP diastolic 55–101
[2022-09-05] MEDS ORDERED: MULT-624 PO (03:34)
[2022-09-05] MEDS ORDERED: GABA-529 PO (03:41)
[2022-09-05] MEDS ORDERED: ASPI-1406 PO (03:41)
[2022-09-05] MEDS ORDERED: HYDR-4001 PO ×2 (03:41→13:58)
[2022-09-05] MEDS ORDERED: *PATIENT'S OWN MEDICATION STORAGE XX SCH (06:00)
[2022-09-05 07:37] LABS: BASOPHILS % 0.7 % (0.0-2.0); EOSINOPHILS % 0.7 % (0.0-5.0); HEMATOCRIT. 35.1 % (42.0-52.0); HEMOGLOBIN. 11.1 g/dL (14.0-18.0); LYMPHOCYTES % 11.4 % (20.0-50.0); MEAN CORPUSCULAR HEMOGLOBIN 25.2 pg (28.0-32.0); MEAN CORPUSCULAR VOLUME 79.9 fL (80.0-94.0); MONOCYTES % 6.3 % (2.0-8.0); NEUTROPHILS % 80.9 % (40.0-76.0); PLATELET 288 x1000/uL (130-400); RED BLOOD CELL COUNT 4.39 mill/uL (4.7-6.1); RED CELL DISTRIBUTION WIDTH 17.6 % (11.6-14.6)
[2022-09-05 07:57] LABS: PROTHROMBIN TIME 10.9 sec (9.6-11.0)
[2022-09-05] MEDS ORDERED: LIDOCAINE HCL 1% 10 MG/ML 10ML VIAL ONE (09:11)
[2022-09-05] MEDS ORDERED: LIDOCAINE HCL/EPINEPHRINE 1%-EPI 1:100,000 20 ML VIAL ONE (09:11)
[2022-09-05] MEDS ORDERED: FENTANYL CITRATE/PF 50MCG/ML 2ML VIAL ONE (09:11)
[2022-09-05] MEDS: CEFAZOLIN 1000MG PREMIX 50 ML IV NR ×3 (09:25→09:34)
[2022-09-05] MEDS ORDERED: FENTANYL CITRATE/PF 50MCG/ML 2ML VIAL IV ONE (09:45)
[2022-09-05] MEDS ORDERED: AMLODIPINE 10MG TABLET PO SCH (10:30)
[2022-09-05] MEDS: HYDROCODONE/ACETAMINOPHEN 5/325MG TABLET PO PRN ×2 (11:56→17:31)
[2022-09-05 14:47] LABS: HEPATITIS B SURFACE ANTIGEN NEGATIVE
[2022-09-05] MEDS ORDERED: NALOXONE HCL 0.4MG/ML VIAL IV PRN (18:00)
[2022-09-05] MEDS ORDERED: IPRATROPIUM BROMIDE (0.02%) 0.5MG/2.5ML NEB HHN PRN (18:00)
[2022-09-05] MEDS ORDERED: ALBUTEROL (0.083%) 2.5MG/3ML NEB HHN PRN (18:00)
[2022-09-05] MEDS ORDERED: HYDRALAZINE HCL 25MG TABLET PO SCH (21:00)
[2022-09-05] MEDS ORDERED: ATORVASTATIN CALCIUM 10MG TABLET PO SCH (21:00)
[2022-09-06] MEDS ORDERED: FUROSEMIDE 40MG TABLET PO SCH (09:00)
== END 2022-09-05 18:55 | disposition home health service (06) | DRG 466 ==
LOC: ER 16:59 → MICUSO 22:50 → 7EST 09-05 02:15
PROVIDERS: ADMIT Family Medicine Adult Medicine; ATTEND Family Medicine Adult Medicine
PROC: 0JH63XZ Insertion of Tunneled Vascular Access Device into Chest Subcutaneous Tissue and Fascia, Percutaneous Approach (ICD-10-PCS; principal; 2022-09-05)
PROC: 02HV33Z Insertion of Infusion Device into Superior Vena Cava, Percutaneous Approach (ICD-10-PCS; 2022-09-05)
PROC: B5181ZA Fluoroscopy of Superior Vena Cava using Low Osmolar Contrast, Guidance (ICD-10-PCS; 2022-09-05)
PROC: B548ZZA Ultrasonography of Superior Vena Cava, Guidance (ICD-10-PCS; 2022-09-05)
PROC: 5A1D70Z Performance of Urinary Filtration, Intermittent, Less than 6 Hours Per Day (ICD-10-PCS; 2022-09-05)
DX: T82.42XA Displacement of vascular dialysis catheter, initial encounter (principal); N18.6 End stage renal disease; I13.2 Hypertensive heart and chronic kidney disease with heart failure and with stage 5 chronic kidney disease, or end stage renal disease; E11.22 Type 2 diabetes mellitus with diabetic chronic kidney disease; N25.81 Secondary hyperparathyroidism of renal origin; D50.9 Iron deficiency anemia, unspecified; E11.51 Type 2 diabetes mellitus with diabetic peripheral angiopathy without gangrene; E87.5 Hyperkalemia; I50.9 Heart failure, unspecified; J44.9 Chronic obstructive pulmonary disease, unspecified; Z20.822 Contact with and (suspected) exposure to COVID-19; E21.3 Hyperparathyroidism, unspecified; K21.9 Gastro-esophageal reflux disease without esophagitis; Z63.4 Disappearance and death of family member; Z85.528 Personal history of other malignant neoplasm of kidney; Z89.511 Acquired absence of right leg below knee; Z89.512 Acquired absence of left leg below knee; Z90.5 Acquired absence of kidney; Z79.899 Other long term (current) drug therapy; Z88.8 Allergy status to other drugs, medicaments and biological substances; Z99.2 Dependence on renal dialysis; Z83.3 Family history of diabetes mellitus; Z82.49 Family history of ischemic heart disease and other diseases of the circulatory system; Y71.2 Prosthetic and other implants, materials and accessory cardiovascular devices associated with adverse incidents; Y92.89 Other specified places as the place of occurrence of the external cause
CPT/HCPCS: 36415; 36558; 71045; 76937; 77001; 80048; 80053; 85025; 86705; 86709; 86803; 87340; 87426; 90935; 93005; 94640; 99152; 99153; 99285; C1750; C1769; J0690; J1642; J2405; J3010; J3490; G0500